=== PATIENT | male | born 1955 | race Caucasian/White ===

== ENCOUNTER → 2017-01-27 | Outpatient (REF) | payer OTHER ==
[~2017-01-27] MED LIST: ASPI1TAB PO; ATOR40TA PO; CARV6.25 PO; IBUP200T45 PO; METF500T PO; MULTTAB PO; VITA400C29 PO
== END ==
LOC: M SFHCPLAZ 16:00
PROVIDERS: ATTEND Dermatology
DX: C44.601 Unspecified malignant neoplasm of skin of unspecified upper limb, including shoulder (principal)

== ENCOUNTER → 2017-04-05 | Outpatient (CLI) | payer OTHER ==
[~2017-04-05] MED LIST changes: -ATOR40TA PO; +ATOR40TA75 PO; -METF500T PO; +METF500T13 PO; +VITA-110 PO; -VITA400C29 PO
--- NOTE | 2017-04-05 09:39 | REP ---
Left wrist four views: I suspect there is soft tissue edema over the dorsum. There is no fracture or dislocation. Mineralization joint spaces are normal. No calcifications or foreign bodies. Signed by Buck Lopez MD 04/05/2017 09:31 A
== END ==
LOC: M WUC 08:51
PROVIDERS: ATTEND Physician Assistant
DX: S60.212A Contusion of left wrist, initial encounter (principal); W18.30XA Fall on same level, unspecified, initial encounter; Y92.009 Unspecified place in unspecified non-institutional (private) residence as the place of occurrence of the external cause

== ENCOUNTER → 2017-05-03 | Outpatient (CLI) | payer OTHER ==
--- NOTE | 2017-05-03 11:04 | REP ---
Clinical: Chest wall pain . Comparison: None . Technique: PA and lateral. Findings: The mediastinum and cardiac silhouette are normal. The lung [place]ada are clear and without acute consolidation, effusion, or pneumothorax. The skeletal structures are intact and normal. Impression: 1. No acute cardiopulmonary process. Signed by Krishna Guerra MD 05/03/2017 10:55 A
== END ==
LOC: M WUC 10:37
PROVIDERS: ATTEND Physician Assistant
DX: S29.011A Strain of muscle and tendon of front wall of thorax, initial encounter (principal); W18.30XA Fall on same level, unspecified, initial encounter; Y92.009 Unspecified place in unspecified non-institutional (private) residence as the place of occurrence of the external cause

== ENCOUNTER → 2017-12-30 | Outpatient (REF) ==
[2017-12-30 10:53] LABS: RUBELLA IgG QUALITATIVE IMMUNE (IMMUNE)
== END ==
LOC: M LAB 09:04
DX: Z00.00 Encounter for general adult medical examination without abnormal findings (principal)

== ENCOUNTER 2018-02-19 19:39 | Emergency (ER) | payer OTHER ==
[2018-02-19] MEDS: DERMABOND TOPICAL SKIN ADHESIVE TOP (19:00)
[2018-02-19] MEDS: ADACEL/BOOSTRIX VACCINE (DIPHTH/PERTUSS/ACELL/TETANUS)0.5ML SYR (90715) IM (19:10)
== END 2018-02-19 19:43 | disposition home or self-care (01) ==
LOC: M ED 19:39
DX: S61.211A Laceration without foreign body of left index finger without damage to nail, initial encounter (principal); S61.213A Laceration without foreign body of left middle finger without damage to nail, initial encounter; W26.8XXA Contact with other sharp object(s), not elsewhere classified, initial encounter; Y92.099 Unspecified place in other non-institutional residence as the place of occurrence of the external cause; Y93.9 Activity, unspecified; Y99.9 Unspecified external cause status; E11.9 Type 2 diabetes mellitus without complications; I10 Essential (primary) hypertension; Z79.82 Long term (current) use of aspirin; Z79.84 Long term (current) use of oral hypoglycemic drugs; Z79.899 Other long term (current) drug therapy; Z91.89 Other specified personal risk factors, not elsewhere classified
CPT/HCPCS: 90715

== ENCOUNTER 2020-06-03 16:14 | Emergency (ER) | payer MEDICARE, BC, OTHER ==
[~2020-06-03] VITALS: Ht 190.5 cm; Wt 107.6 kg
[~2020-06-03 16:14] MED LIST changes: +A REDS PO; -ASPI1TAB PO; +ASPI81TA26 PO; +KEFL500C17 PO
[2020-06-03] MEDS ORDERED: AMIO200T3 PO (16:27)
[2020-06-03] MEDS ORDERED: OCUVTAB4 PO (16:27)
[2020-06-03 17:15] LABS: BASO # 0.1 10^3/uL (0.0-0.2); BASO % 0.6 % (0.0-1.0); EOS # 0.2 10^3/uL (0.0-0.5); EOS % 2.9 % (0.0-3.0); HEMATOCRIT 43.1 % (42.0-52.0); HEMOGLOBIN 14.2 g/dl (13.5-17.5); LYMPH # 3.1 10^3/uL (1.5-5.0); MEAN CORPUSCULAR HEMOGLOBIN 28.3 pg (27.0-33.0); MEAN CORPUSCULAR HGB CONC 32.9 g/dl (32.0-36.5); MEAN CORPUSCULAR VOLUME 85.9 fl (80.0-96.0); MONO # 0.7 10^3/uL (0.0-0.8); MONO % 8.7 % (0.0-5.0); NEUTROPHILS % 49.6 % (36.0-66.0); PLATELET COUNT, AUTOMATED 319 10^3/uL (150-450); RED BLOOD COUNT 5.02 10^6/uL (4.30-6.10)
--- NOTE | 2020-06-03 17:43 | REPVR ---
PROCEDURE INFORMATION: Exam: XR Chest, 1 View Exam date and time: 06/03/2020 5:08 PM Age: 64 years old Clinical indication: Right-sided chest pain TECHNIQUE: Imaging protocol: XR of the chest Views: 1 view. COMPARISON: CR CHEST 2 VIEW 05/03/2017 10:45 AM FINDINGS: Lungs: The lungs are clear. No pulmonary consolidation. The pulmonary vasculature is within normal limits. Pleural space: No pleural effusion or pneumothorax. Heart/Mediastinum: The heart is normal in size given this AP portable technique. Bones/joints: No acute bone or joint abnormality. IMPRESSION: No acute abnormality. Electronically signed by: Claudy Tinsley On 06/03/2020 17:42:51 PM
[2020-06-03 17:45] VITALS: BP 173/90
[2020-06-03 17:46] LABS: BLOOD UREA NITROGEN 20 MG/DL (7-18); CALCIUM LEVEL 8.9 MG/DL (8.8-10.2); CARBON DIOXIDE LEVEL 29 MEQ/L (21-32); CHLORIDE LEVEL 104 MEQ/L (98-107); CK-MB VALUE MASS 1.4 NG/ML (<3.6); CPK CREATINE PHOSPHOKINASE 136 U/L (39-308); CREATININE FOR GFR 0.94 MG/DL (0.70-1.30); GLOMERULAR FILTRATION RATE > 60.0 (>49); GLUCOSE, FASTING 98 MG/DL (70-100); MB/CK RELATIVE INDEX 1.03 (< OR =4); POTASSIUM SERUM 3.8 MEQ/L (3.5-5.1); SODIUM LEVEL 140 MEQ/L (136-145); TROPONIN I < 0.02 NG/ML (< 0.10)
--- NOTE | 2020-06-04 07:02 | ECGEPIP ---
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
== END 2020-06-03 18:14 | disposition home or self-care (01) ==
LOC: M ED 16:14
DX: M25.511 Pain in right shoulder (principal); I11.9 Hypertensive heart disease without heart failure; E11.9 Type 2 diabetes mellitus without complications; E78.5 Hyperlipidemia, unspecified; Z79.899 Other long term (current) drug therapy

== ENCOUNTER 2020-06-17 14:53 | Inpatient (IN) | payer MEDICARE, BC, OTHER ==
[~2020-06-17] VITALS: Ht 190.5 cm; Wt 104.0 kg
[~2020-06-17 14:53] MED LIST changes: +AMIO200T3 PO; +OCUVTAB4 PO
[2020-06-17 15:40] LABS: BASO # 0.1 10^3/uL (0.0-0.2); BASO % 0.3 % (0.0-1.0); EOS # 0.4 10^3/uL (0.0-0.5); EOS % 2.4 % (0.0-3.0); HEMATOCRIT 41.7 % (42.0-52.0); HEMOGLOBIN 13.7 g/dl (13.5-17.5); LYMPH # 2.3 10^3/uL (1.5-5.0); LYMPH % 15.1 % (24.0-44.0); MEAN CORPUSCULAR HEMOGLOBIN 28.1 pg (27.0-33.0); MEAN CORPUSCULAR HGB CONC 32.9 g/dl (32.0-36.5); MEAN CORPUSCULAR VOLUME 85.6 fl (80.0-96.0); MONO # 1.5 10^3/uL (0.0-0.8); MONO % 10.1 % (0.0-5.0); NEUTROPHILS # 10.9 10^3/uL (1.5-8.5); NEUTROPHILS % 71.4 % (36.0-66.0); PLATELET COUNT, AUTOMATED 379 10^3/uL (150-450); RED BLOOD COUNT 4.87 10^6/uL (4.30-6.10); WHITE BLOOD COUNT 15.3 10^3/uL (4.0-10.0)
[2020-06-17] MEDS ORDERED: methylPREDNISolone 125MG 2ML VIAL IV ONE (15:45)
[2020-06-17] MEDS ORDERED: diphenhydrAMINE 50MG/ML VIAL (J1200) IV ONE (15:45)
[2020-06-17 15:59] LABS: INR 0.96; PARTIAL THROMBOPLASTIN TIME 29.1 SECONDS (24.2-38.5)
[2020-06-17 16:09] LABS: ALBUMIN 3.5 GM/DL (3.2-5.2); ALT/SGPT 40 U/L (12-78); BILIRUBIN,DIRECT 0.2 MG/DL (0.0-0.2); BILIRUBIN,TOTAL 0.5 MG/DL (0.2-1.0); CK-MB VALUE MASS < 1.0 NG/ML (<3.6); CPK CREATINE PHOSPHOKINASE 71 U/L (39-308); LIPASE 95 U/L (73-393); MB/CK RELATIVE INDEX 1.41 (< OR =4); TOTAL PROTEIN 7.5 GM/DL (6.4-8.2); TROPONIN I < 0.02 NG/ML (< 0.10)
[2020-06-17] MEDS ORDERED: ISOVUE-370 76% 100ML VIAL As Ordered ONE (16:38)
--- NOTE | 2020-06-17 17:11 | REP ---
INDICATION: r shoulder/chest pain COMPARISON: None. TECHNIQUE: Axial contrast enhanced images from the thoracic inlet to the upper abdomen using pulmonary embolus technique with multiplanar re-formations. 75 ml Isovue 370 intravenous contrast material administered without complication. This CT examination was performed using the following dose reduction techniques: Automated exposure control, adjustment of mA and/or kv according to the patient's size, and use of iterative reconstruction technique. FINDINGS: Satisfactory enhancement of the pulmonary vasculature is achieved and no filling defects are identified to suggest pulmonary embolus. Further evaluation of the mediastinum demonstrates relatively normal thoracic aorta, heart and pericardium. There is no evidence for thoracic aortic aneurysm or dissection. No cardiomegaly or pericardial effusion. The bilateral lung canada are well aerated and clear without consolidation pleural effusion or pneumothorax. Very minimal posterior basilar dependent changes suggested at the right base. Tracheobronchial tree is patent. No nodule or mass lesion is identified. No adenopathy noted. Surrounding musculoskeletal structures intact IMPRESSION: No evidence for pulmonary embolus. No acute mediastinal or pleural parenchymal process. <Electronically signed by Krishna Guerra > 06/17/20 [id number]
--- NOTE | 2020-06-17 17:19 | REP ---
INDICATION: rlq pain. COMPARISON: None TECHNIQUE: Axial contrast-enhanced images from the lung bases to the pubic symphysis using 100 cc Isovue 370 intravenous contrast material. Coronal and sagittal reformations obtained.. This CT examination was performed using the following dose reduction techniques: Automated exposure control, adjustment of mA and/or kv according to the patient's size, and the use of iterative reconstruction technique. FINDINGS: There is a complex 4.5 cm somewhat multiloculated fluid collection in the right lower quadrant extending from the base of the appendix with surrounding inflammatory changes and a relatively normal appearance to the cecum and terminal ileum (images [id number]). Findings suggest a focal abscess collection related to appendicitis. No free air is appreciated. The collection does not appear amenable to drainage due to its significant complex appearance. Liver, spleen, pancreas, gallbladder, and bilateral adrenal glands are normal. The kidneys demonstrate symmetric likely chronic perinephric stranding along with few scattered hypodensities compatible with cysts and 2 mm nonobstructing left renal calculi. Further evaluation of the small and large bowel is unremarkable. Few scattered sigmoid diverticular noted. Pelvis demonstrates collapsed bladder and mildly prominent prostate gland. No significant ascites. No free air. No adenopathy. Abdominal aorta and vasculature appear normal. Musculoskeletal structures demonstrate age-related changes without acute osseous abnormality. IMPRESSION: *Findings described above consistent with appendicitis and loculated periappendiceal abscess/phlegmon collection. *Further nonacute findings as described above. <Electronically signed by Krishna Guerra > 06/17/20 [id number]
[2020-06-17] MEDS ORDERED: AMPICILLIN SOD/SULBACTAM SOD 3 GM in D5W MINI-BAG PLUS 100 ML IV ONE (18:00)
[2020-06-17] MEDS ORDERED: GLUCAGON INJ 1MG VIAL SC PRN (18:45)
[2020-06-17] MEDS ORDERED: GLUCOSE 4GM CHEW TABLET PO PRN (18:45)
[2020-06-17] MEDS ORDERED: DEXTROSE 50% 50 ML SYRINGE IV PRN (18:45)
[2020-06-17] MEDS ORDERED: D31000TA2 PO (18:48)
[2020-06-17] MEDS ORDERED: ATOR1TAB21 PO (18:50)
[2020-06-17] MEDS ORDERED: CARV12.5 PO (18:50)
[2020-06-17] MEDS ORDERED: IRBE150T14 PO (18:53)
[2020-06-17] MEDS ORDERED: ACET1TAB55 PO (18:53)
[2020-06-17] MEDS ORDERED: CIPR500T3 PO (18:53)
--- NOTE | 2020-06-17 18:58 | HPEPDOC ---
General Date of Admission 06/17/20 Date of Service: Jun 17, 2020 Chief Complaint The patient is a 64-year-old male admitted with a reason for visit of Pain Right Side. Source: Patient History of Present Illness 64 year old man with PMD of DM, HTN, HLD presented to the ED with complaints fo right lower quadrant and flank pain and right shoulder blade pain. Patient first starting feeling sharp right shoulder blade pain 2 weeks ago for which he had come to the ED and worked up for chest complaints but did not have a CT abdomen and pelvis. He then started having right Upper quadrant pain and epigastric which he thought was because he was taking ibuprofen and tylenol for his shoulder blade pain. The pain then moved to the RLQ and right flank associated with night sweats for the past 5 days. He went to see his PMD for this RLQ pain and was started on ciprofloxacin 2 days ago and was ordered a CT abdomen for tomorrow but the pain really became very bad overnight and he could not sleep because of the pain . It is sharp aching about 8/10 in intensity int he RLQ without any radiation. He has been having some altered bowel habits the last 2 weeks having constipation which is very uncommon for him however last 2 days his bowels have been regular. He denied any nausea or vomiting. CT abd and Pelvis showed: There is a complex 4.5 cm somewhat multiloculated fluid collection in the right lower quadrant extending from the base of the appendix with surrounding inflammatory changes and a relatively normal appearance to the cecum and terminal ileum (images [id number]). Findings suggest a focal abscess collection related to appendicitis. No free air is appreciated. The collection does not appear amenable to drainage due to its significant complex appearance. he was ad mitted for Appendicular abscess. Home Medications Scheduled (Multiple Vitamin) 1 Tab Tab, 1 TAB PO DAILY, (Reported) Aspirin (Aspirin EC) 81 Mg Tab, 81 MG PO DAILY, (Reported) Atorvastatin Calcium (Atorvastatin Calcium) 40 Mg Tab, 40 MG PO DAILY, (Reported) Cholecalciferol (Vitamin D) 400 Unit Cap, 400 UNIT PO DAILY, (Reported) Ibuprofen (Ibu-200) 200 Mg Tab, 200 MG PO ASDIRECTED for PAIN, (Reported) Vit A/Vit C/Vit E/Zinc/Copper (Preservision Areds Tablet) 1 Each Tablet, 1 TAB PO BID, (Reported) Miscellaneous Medications Amiodarone HCl (Amiodarone HCl) 200 Mg Tablet, (Reported) Carvedilol (Carvedilol) 6.25 Mg Tab, 6.25 MG PO, (Reported) Metformin HCl (Metformin HCl) 500 Mg Tab, 500 MG PO, (Reported) Allergies Coded Allergies: iodine (Verified Allergy, Intermediate, 06/03/20) Past Medical History Medical History NIDDM, HYPERTENSION, HLD, A fib DEJUAN on CPAP 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 Dyspnea, Lt Headedness Gastrointestinal: Reports: Abdominal Pain; Denies: Nausea, Vomiting, Diarrhea Genitourinary: Denies: Dysuria, Frequency, Incontinence, Retention Hematologic: Denies: Bruising, Bleeding Excessively Musculoskeletal: Reports: Shoulder Pain (right shoulder blade pain) Neurological: Denies: Weakness, Numbness, Change in speech, Confusion Physical Examination General Exam: Positive: Alert, Cooperative, No Acute Distress Eye Exam: Positive: PERRLA, Conjunctiva & lids normal, EOMI; Negative: Sclera icteric ENT Exam: Positive: Atraumatic, Mucous membr. moist/pink, Pharynx Normal Neck Exam: Positive: Supple; Negative: JVD, thyromegaly Chest Exam: Positive: Clear to auscultation, Normal air movement Heart Exam: Positive: Rate Normal, Regular Rhythm, Normal S1, Normal S2; Negative: Murmurs, Rubs Abdomen Exam: Positive: Normal bowel sounds, Soft, Tenderness (Right illiac fossa.), Other (No guarding or rigidity, no rebound); Negative: Hepatospenomegaly Extremity Exam: Positive: Normal pulses; Negative: Clubbing, Cyanosis, Edema Skin Exam: Positive: Nl turgor and temperature; Negative: Breakdown, Lesion Neuro Exam: Positive: Normal Gait, Normal Speech, Strength at 5/5 X4 ext Psych Exam: Positive: Mental status NL, Mood NL, Oriented x 3 Vital Signs Vital Signs Date Time Temp Pulse Resp B/P (MAP) Pulse Ox O2 Delivery O2 Flow Rate FiO2 06/17/20 16:30 06/17/20 14:54 99.6 79 20 97 Room Air Laboratory Data Labs 24H Laboratory Tests 2 06/17/20 15:27: Immature Granulocyte % (Auto) 0.7, Neutrophils (%) (Auto) 71.4H, Lymphocytes (%) (Auto) 15.1L, Monocytes (%) (Auto) 10.1H, Eosinophils (%) (Auto) 2.4, Basophils (%) (Auto) 0.3, Neutrophils # (Auto) 10.9H, Lymphocytes # (Auto) 2.3, Monocytes # (Auto) 1.5H, Eosinophils # (Auto) 0.4, Basophils # (Auto) 0.1, Nucleated Red Blood Cells % (auto) 0.0, Urine Color YELLOW, Urine Appearance CLEAR, Urine pH 6.0, Urine Specific [place] 1.012, Urine Protein NEGATIVE, Urine Glucose (UA) NEGATIVE, Urine Ketones NEGATIVE, Urine Blood 1+H, Urine Nitrite NEGATIVE, Urine Bilirubin NEGATIVE, Urine Urobilinogen 0.2, Urine Leukocyte Esterase NEGATIVE, Urine WBC (Auto) 1, Urine RBC (Auto) 15H, Urine Hyaline Casts (Auto) 0, Urine Bacteria (Auto) NEGATIVE, Urine Squamous Epithelial Cells 0, Urine Mucus (Auto) SMALL, Urine Sperm (Auto) , Total Bilirubin 0.5, Direct Bilirubin 0.2, Aspartate Amino Transf (AST/SGOT) 20, Alanine Aminotransferase (ALT/SGPT) 40, Alkaline Phosphatase 87, Total Creatine Kinase 71, Creatine Kinase MB < 1.0, Creatine Kinase MB Relative Index 1.41, Troponin I < 0.02, Total Protein 7.5, Albumin 3.5, Albumin/Globulin Ratio 0.9, Lipase 95 06/17/20 15:32: POC Glucose (Misc Panel) 124H, POC Sodium (Misc Panel) 138, POC Potassium (Misc Panel) 3.4L, POC Chloride (Misc Panel) 96L, POC Total CO2 (Misc Panel) 27.0, POC Blood Urea Nitrogen (Misc Panel 14, POC Ionized Calcium (Misc Panel) 4.3L, POC Creatinine (Misc Panel) 0.9, POC Hematocrit (Misc Panel) 44.0 06/17/20 15:40: Prothrombin Time 13.0, Prothromb Time International Ratio 0.96, Activated Parti al Thromboplast Time 29.1 CBC/BMP Laboratory Tests 06/17/20 15:27 Assessment/Plan 64 year old man with PMD of DM, HTN, HLD presented to the ED with complaints fo right lower quadrant and flank pain and right shoulder blade pain. Patient first starting feeling sharp right shoulder blade pain 2 weeks ago for which he had come to the ED and worked up for chest complaints but did not have a CT abdomen and pelvis. He then started having right Upper quadrant pain and epigastric which he thought was because he was taking ibuprofen and tylenol for his shoulder blade pain. The pain then moved to the RLQ and right flank associated with night sweats for the past 5 days. He went to see his PMD for this RLQ pain and was started on ciprofloxacin 2 days ago and was ordered a CT abdomen for tomorrow but the pain really became very bad overnight and he could not sleep because of the pain . It is sharp aching about 8/10 in intensity int he RLQ without any radiation. He has been having some altered bowel habits the last 2 weeks having constipation which is very uncommon for him however last 2 days his bowels have been regular. He denied any nausea or vomiting. CT abd and Pelvis showed: There is a complex 4.5 cm somewhat multiloculated fluid collection in the right lower quadrant extending from the base of the appendix with surrounding inflammatory changes and a relatively normal appearance to the cecum and terminal ileum (images [id number]). Findings suggest a focal abscess collection related to appendicitis. No free air is appreciated. The collection does not appear amenable to drainage due to its significant complex appearance. he was admitted for Appendicular abscess. Appendicular abscess will give zosyn, IVF, clear liquids, Morphine IV Surgical consult Dr Jacques IR consult tomorrow for IR drainage. NIDDM will stop metformin Lispro sliding scale FS AC and HS HYPERTENSION will continue Irbesartan anad coreg HLD will hold statin A fib continue amiodarone will hold ASA. Not on AC. DEJUAN continue CPAP Plan / VTE VTE Prophylaxis Ordered?: Yes DIMITRI CARRANZA MD Jun 17, 2020 18:10
[2020-06-17] MEDS ORDERED: KETOROLAC 30 MG/ML 1ML VIAL IV PRN (19:00)
[2020-06-17] MEDS ORDERED: MORPHINE 2 MG/ML 1ML VIAL (J2270) IV PRN (19:00)
[2020-06-17 20:45] VITALS: BP 140/63
[2020-06-17] MEDS: HumaLOG INSULIN (NovoLOG) PER UNIT SC SCH (21:00)
[2020-06-17] MEDS: CARVedilol 12.5 MG TAB PO SCH (22:01)
[2020-06-17] MEDS: NS 1,000 ML IV SCH (22:02)
[2020-06-18] MEDS: PIPERACILLIN/TAZOBACTAM SOD 3.375 GM in D5W MINI-BAG PLUS 50 ML IV SCH ×4 (02:14→20:34)
[2020-06-18] MEDS: NS 1,000 ML IV SCH ×2 (05:45→14:45)
[2020-06-18 06:00] VITALS: BP 115/57
[2020-06-18 06:58] LABS: BASO % 0.1 % (0.0-1.0); EOS % 0.1 % (0.0-3.0); HEMATOCRIT 38.5 % (42.0-52.0); HEMOGLOBIN 12.6 g/dl (13.5-17.5); LYMPH # 1.3 10^3/uL (1.5-5.0); LYMPH % 8.8 % (24.0-44.0); MEAN CORPUSCULAR HEMOGLOBIN 28.1 pg (27.0-33.0); MEAN CORPUSCULAR HGB CONC 32.7 g/dl (32.0-36.5); MEAN CORPUSCULAR VOLUME 85.9 fl (80.0-96.0); MONO # 0.4 10^3/uL (0.0-0.8); MONO % 2.9 % (0.0-5.0); NEUTROPHILS # 13.3 10^3/uL (1.5-8.5); NEUTROPHILS % 87.4 % (36.0-66.0); PLATELET COUNT, AUTOMATED 355 10^3/uL (150-450); RED BLOOD COUNT 4.48 10^6/uL (4.30-6.10); WHITE BLOOD COUNT 15.2 10^3/uL (4.0-10.0)
[2020-06-18 07:17] LABS: BLOOD UREA NITROGEN 19 MG/DL (7-18); CALCIUM LEVEL 8.6 MG/DL (8.8-10.2); CARBON DIOXIDE LEVEL 30 MEQ/L (21-32); CHLORIDE LEVEL 101 MEQ/L (98-107); CREATININE FOR GFR 1.05 MG/DL (0.70-1.30); GLOMERULAR FILTRATION RATE > 60.0 (>49); GLUCOSE, FASTING 244 MG/DL (70-100); POTASSIUM SERUM 3.9 MEQ/L (3.5-5.1); SODIUM LEVEL 136 MEQ/L (136-145)
[2020-06-18] MEDS: HumaLOG INSULIN (NovoLOG) PER UNIT SC SCH ×4 (08:32→21:00)
[2020-06-18 08:52] VITALS: BP 145/82
[2020-06-18] MEDS: IRBESARTAN 150MG TAB PO SCH (10:26)
[2020-06-18] MEDS: CARVedilol 12.5 MG TAB PO SCH ×2 (10:27→20:34)
[2020-06-18] MEDS: AMIODARONE 200 MG TAB (PACERONE) PO SCH (10:28)
--- NOTE | 2020-06-18 11:35 | IPNPDOC ---
Text Note Date of Service The patient was seen on 06/18/20. NOTE Subjective: no new complaint soverngith. His abdomnal pain in the RLQ remains unchanged. Also continues to have right shoulder kings pain. No fever Physical Exam: Vitals: As below General Exam: Positive: Alert, Cooperative, No Acute Distress Eye Exam: Positive: PERRLA, Conjunctiva & lids normal, EOMI; Negative: Sclera icteric ENT Exam: Positive: Atraumatic, Mucous membr. moist/pink, Pharynx Normal Neck Exam: Positive: Supple; Negative: JVD, thyromegaly Chest Exam: Positive: Clear to auscultation, Normal air movement Heart Exam: Positive: Rate Normal, Regular Rhythm, Normal S1, Normal S2; Negative: Murmurs, Rubs Abdomen Exam: Positive: Normal bowel sounds, Soft, Tenderness (Right illiac fossa.), Other (No guarding or rigidity, no rebound); Negative: Hepatosplenomegaly Extremity Exam: Positive: Normal pulses; Negative: Clubbing, Cyanosis, Edema Skin Exam: Positive: Nl turgor and temperature; Negative: Breakdown, Lesion Neuro Exam: Positive: Normal Gait, Normal Speech, Strength at 5/5 X4 ext Psych Exam: Positive: Mental status NL, Mood NL, Oriented x 3 Labs and Radiology: reviewed Assessment and Plan: 64 year old man with PMD of DM, HTN, HLD presented to the ED with complaints fo right lower quadrant and flank pain and right shoulder blade pain. Patient first starting feeling sharp right shoulder blade pain 2 weeks ago for which he had come to the ED and worked up for chest complaints but did not have a CT abdomen and pelvis. He then started having right Upper quadrant pain and epigastric which he thought was because he was taking ibuprofen and tylenol for his shoulder blade pain. The pain then moved to the RLQ and right flank associated with night sweats for the past 5 days. He went to see his PMD for this RLQ pain and was started on ciprofloxacin 2 days ago and was ordered a CT abdomen for tomorrow but the pain really became very bad overnight and he could not sleep because of the pain . It is sharp aching about 8/10 in intensity int he RLQ without any radiation. He has been having some altered bowel habits the last 2 weeks having constipation which is very uncommon for him however last 2 days his bowels have been regular. He denied any nausea or vomiting. CT abd and Pelvis showed: There is a complex 4.5 cm somewhat multiloculated fluid collection in the right lower quadrant extending from the base of the appendix with surrounding inflammatory changes and a relatively normal appearance to the cecum and terminal ileum (images [id number]). Findings suggest a focal abscess collection related to appendicitis. No free air is appreciated. The collection does not appear amenable to drainage due to its significant complex appearance. he was admitted for Appendicular abscess. Appendicular abscess will give zosyn, IVF, clear liquids, Morphine IV Surgical consult Dr Jacques IR consult for IR drainage. NIDDM will stop metformin Lispro sliding scale FS AC and HS HYPERTENSION will continue Irbesartan and coreg HLD will hold statin Paroxysmal A fib Now in sinus rhythm. continue amiodarone will hold ASA for now. Not on AC. DEJUAN continue CPAP VS,Fishbone, I+O VS, Fishbone, I+O Laboratory Tests 06/17/20 15:27 06/18/20 06:38 Vital Signs Date Time Temp Pulse Resp B/P (MAP) Pulse Ox O2 Delivery O2 Flow Rate FiO2 06/18/20 10: 145/82 06/18/20 08:52 97.3 60 16 96 Room Air I&O- Last 24 Hours up to 6 AM 06/18/20 06:00 Intake Total 250 ml Output Total 1000 ml Balance -750 ml DIMITRI CARRANZA MD Jun 18, 2020 11:35
[2020-06-18] MEDS ORDERED: SODIUM BICARBONATE 8.4% INJ 50MEQ 50 ML VIAL As Ordered ONE (13:04)
[2020-06-18] MEDS ORDERED: LIDOCAINE 1% MDV 20ML VIAL As Ordered ONE (13:04)
--- NOTE | 2020-06-18 13:40 | CR ---
DATE OF CONSULT: 06/18/2020 REASON FOR CONSULT: Abdominal pain. HISTORY OF PRESENT ILLNESS: The patient is a 64-year-old male who presented to the Emergency Room with right lower quadrant and flank pain for almost a week and a half now. He was seen in the Emergency Room in the past mainly because his pains were right upper quadrant and going to the right shoulder. Work-up was negative at the time. He now presents with pain more towards the right lower quadrant. At this time CT was done showing inflammation near the tip of the appendix as well as a phlegmon versus loculated abscess extending from the base of the appendix with surrounding inflammatory changes. The main change that brought him back into the Emergency Room was he started having night sweats for the last 5 days. ER called me with these findings secondary to him having a well formed abscess. Recommendation is to proceed with IR drainage as opposed to immediate surgery so he was admitted to the Hospitalist Service overnight. This morning he has had a couple doses of I.V. antibiotics, he already feels tremendously better, his pain is almost non-existent and he did not have any more night sweats last evening. I have already discussed his case with radiology. They will attempt drain placement at some point this afternoon. Once that is completed he will be able to be discharged home and I will follow up with him in the office to discuss drain removal and possible elective surgery in the future. PAST MEDICAL HISTORY: * Diabetes. * Hypertension. * Hyperlipidemia. * Afib. * Sleep apnea. PAST SURGICAL HISTORY: * Right shoulder and arm surgery. * Benign neck cyst removal. * Tonsils and adenoids. SOCIAL HISTORY: Denies drug, alcohol or tobacco abuse. FAMILY HISTORY: Noncontributory. ALLERGIES: IODINE. MEDICATIONS: Please see Med Rec. REVIEW OF SYSTEMS: Pertinent positives as per the HPI. PHYSICAL EXAMINATION: General: Patient is A&O times 3, in no acute distress. Vital signs: Temp 97.3, pulse 60, respirations 16, blood pressure 145/82, pulse ox 96% on room air. HEENT: Pupils equal, round and reactive to light and accommodation. Heart: S1 and S2 regular rate and rhythm. Lungs: Clear to auscultation bilaterally. Abdomen: Soft, slight tenderness to deep palpation in the right lower quadrant only, no guarding or rebound, no rigidity, no ventral hernias. Extremities: No clubbing, cyanosis or edema. LABORATORY DATA: White count 15.2, hemoglobin 12.6, platelets 355. Potassium 3.9, creatinine 1.05. LFTs within normal limits. IMAGING: CT abdomen and pelvis shows signs again of the appendicitis with a complex 4.5 cm somewhat multiloculated fluid collection in the right lower quadrant extending from the base of the appendix with surrounding inflammatory changes, relatively normal appearance to the cecum and the terminal ilium. I discussed these findings in person and reviewed the images with the radiologist as well. ASSESSMENT AND PLAN: Patient is a 64-year-old male with likely ruptured appendicitis most likely happened within the last week to week and a half. At this time he has a well formed abscess. Recommendation at this time is to proceed with IR drainage. Once the drain is in place and he is tolerating oral antibiotics he can be discharged home with plan to remove the drain in about 3-4 days and then we will repeat CT of the abdomen and pelvis in 4-6 weeks. If there is still visible appendix there we will plan for elective resection at that time. ROBBIE
[2020-06-18 14:46] VITALS: BP 155/76
--- NOTE | 2020-06-18 17:21 | REP ---
INDICATION: ABSCESS DRAIN OF APPENDICULAR The patient has a history of COMPARISON: None. TECHNIQUE: The procedure was performed by ROLANDO Vu, under the direct supervision of Dr. Jones The risks and benefits of the procedure were explained to the patient and an informed consent was obtained both verbally and written. Directly prior to the start of the procedure a formal time-out was completed in the procedure room. Under ultrasound guidance the right lower quadrant abscess was localized. The skin was prepped and draped in a sterile fashion. Twenty ML of buffered lidocaine was used as a local anesthetic. Using ultrasound guidance a 10 La[place] pigtail catheter was inserted using trocar technique. FINDINGS: Thirty mL of bloody pus was withdrawn and sent to the laboratory for further analysis. The catheter was sutured to the skin and a drainage bag was attached. The patient tolerated the procedure well and there were no immediate complications. After the appropriate amount of monitored convalescence, the patient was discharged from the department. IMPRESSION: Ultrasound guided pigtail catheter placement. <Electronically signed by Cheli Morales > 06/18/20 1624 <Electronically signed by Buck Jones > 06/18/20 [id number]
[2020-06-18] MEDS: SENOKOT S TAB PO SCH (20:33)
[2020-06-18] MEDS: metroNIDAZOLE (FLAGYL) 500MG TABLET PO SCH (20:33)
[2020-06-18 22:00] VITALS: BP 146/74
[2020-06-18] MEDS ORDERED: RAMELTEON 8 MG TAB (ROZEREM) PO PRN (22:45)
[2020-06-19] MEDS: NS 1,000 ML IV SCH ×2 (01:42→11:31)
[2020-06-19] MEDS: PIPERACILLIN/TAZOBACTAM SOD 3.375 GM in D5W MINI-BAG PLUS 50 ML IV SCH ×2 (01:42→08:14)
[2020-06-19 06:00] VITALS: BP 119/54
[2020-06-19 07:20] LABS: BASO % 0.2 % (0.0-1.0); EOS # 0.1 10^3/uL (0.0-0.5); EOS % 0.7 % (0.0-3.0); HEMATOCRIT 37.3 % (42.0-52.0); HEMOGLOBIN 12.5 g/dl (13.5-17.5); LYMPH # 2.2 10^3/uL (1.5-5.0); LYMPH % 18.5 % (24.0-44.0); MEAN CORPUSCULAR HEMOGLOBIN 28.7 pg (27.0-33.0); MEAN CORPUSCULAR HGB CONC 33.5 g/dl (32.0-36.5); MEAN CORPUSCULAR VOLUME 85.6 fl (80.0-96.0); MONO # 0.9 10^3/uL (0.0-0.8); MONO % 7.5 % (0.0-5.0); NEUTROPHILS # 8.8 10^3/uL (1.5-8.5); NEUTROPHILS % 72.7 % (36.0-66.0); PLATELET COUNT, AUTOMATED 362 10^3/uL (150-450); RED BLOOD COUNT 4.36 10^6/uL (4.30-6.10); WHITE BLOOD COUNT 12.1 10^3/uL (4.0-10.0)
[2020-06-19 07:44] LABS: BLOOD UREA NITROGEN 21 MG/DL (7-18); CALCIUM LEVEL 8.3 MG/DL (8.8-10.2); CARBON DIOXIDE LEVEL 29 MEQ/L (21-32); CHLORIDE LEVEL 104 MEQ/L (98-107); GLOMERULAR FILTRATION RATE > 60.0 (>49); GLUCOSE, FASTING 169 MG/DL (70-100); POTASSIUM SERUM 3.3 MEQ/L (3.5-5.1); SODIUM LEVEL 139 MEQ/L (136-145)
[2020-06-19] MEDS: HumaLOG INSULIN (NovoLOG) PER UNIT SC SCH (08:13)
[2020-06-19] MEDS: metroNIDAZOLE (FLAGYL) 500MG TABLET PO SCH (08:17)
[2020-06-19] MEDS: SENOKOT S TAB PO SCH (08:17)
--- NOTE | 2020-06-19 08:20 | IPNPDOC ---
Text Note Date of Service The patient was seen on 06/19/20. NOTE No acute events overnight. Drain is in place without any problems. Output is purulent. Abd pain and swelling have improved. No night sweats or fevers. VSSAF NAD abd - soft, nt, nd, drain in place RLQ with purulent output labs - below A) 64y/o male with perforated appendix s/p drain placement P) reg diet PO abx d/c home with drain f/u in office on thursday for drain removal Franklin Jacques DO VS,Fishbone, I+O VS, Fishbone, I+O Laboratory Tests 06/19/20 06:44 Vital Signs Date Time Temp Pulse Resp B/P (MAP) Pulse Ox O2 Delivery O2 Flow Rate FiO2 06/19/20 06:00 97.7 58 17 119/54 (75) 97 Room Air I&O- Last 24 Hours up to 6 AM 06/19/20 06:00 Intake Total 3100 ml Output Total 1900 ml Balance 1200 ml PAYTON JACQUES DO Jun 19, 2020 08:20
[2020-06-19 08:41] VITALS: BP 129/69
[2020-06-19] MEDS: AMIODARONE 200 MG TAB (PACERONE) PO SCH (08:41)
[2020-06-19] MEDS: IRBESARTAN 150MG TAB PO SCH (08:41)
[2020-06-19] MEDS: CARVedilol 12.5 MG TAB PO SCH (08:41)
[2020-06-19] MEDS ORDERED: FLAG500T PO (10:44)
[2020-06-19] MEDS ORDERED: CIPR500T3 PO (10:44)
[2020-06-19] MEDS ORDERED: POTASSIUM CHLORIDE 10 MEQ SR TABLET PO ONE (11:00)
--- NOTE | 2020-06-20 12:15 | DS.PDOC ---
Discharge Summary General Date of Admission Jun 17, 2020 at 18:33 Discharge Summary PROCEDURES PERFORMED DURING STAY: Placement of abscess drain by radiology DISCHARGE DIAGNOSES: Appendicular abscess. s/p drainage. Hypokalemia Right shoulder blade pain. 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 HOSPITAL COURSE: 64 year old man with PMD of DM, HTN, HLD presented to the ED with complaints fo right lower quadrant and flank pain and right shoulder blade pain. Patient first starting feeling sharp right shoulder blade pain 2 weeks ago for which he had come to the ED and worked up for chest complaints but did not have a CT abdomen and pelvis. He then started having right Upper quadrant pain and epigastric which he thought was because he was taking ibuprofen and tylenol for his shoulder blade pain. The pain then moved to the RLQ and right flank associated with night sweats for the past 5 days. He went to see his PMD for this RLQ pain and was started on ciprofloxacin 2 days ago and was ordered a CT abdomen for tomorrow but the pain really became very bad overnight and he could not sleep because of the pain . It is sharp aching about 8/10 in intensity int he RLQ without any radiation. He has been having some altered bowel habits the last 2 weeks having constipation which is very uncommon for him however last 2 days his bowels have been regular. He denied any nausea or vomiting. CT abd and Pelvis showed: There is a complex 4.5 cm somewhat multiloculated fluid collection in the right lower quadrant extending from the base of the appendix with surrounding inflammatory changes and a relatively normal appearance to the cecum and terminal ileum (images [id number]). Findings suggest a focal abscess collection related to appendicitis. No free air is appreciated. The collection does not appear amenable to drainage due to its significant complex appearance. He was admitted for Appendicular abscess. He had a Drain placed by radiology on 06/18/20 Appendicular abscess s/p drain placed by radiology to go home with drain in place follow up with Dr Jacques in 3 days Given 2 weeks of ciprofloxacin and Flagyl. NIDDM continue home meds. HYPERTENSION continue irbesartan/HCTZ and coreg. HLD statin Paroxysmal A fib Now in sinus rhythm. continue amiodarone, ASA. Not on AC. DEJUAN continue CPAP Persistent Right shoulder blade pain uncertain if a referred pain from abdomen. He does have h/o right shoulder surgery. If does not resolve after the abdominal issues are resolved then would benefit from orthopedic evaluation for any nerve entrapment at the shoulder. DISCHARGE MEDICATIONS: Please see below. ALLERGIES: Please see below. PHYSICAL EXAMINATION ON DISCHARGE: VITAL SIGNS: Please see below. General Exam: Positive: Alert, Cooperative, No Acute Distress Eye Exam: Positive: PERRLA, Conjunctiva & lids normal, EOMI; Negative: Sclera icteric ENT Exam: Positive: Atraumatic, Mucous membr. moist/pink, Pharynx Normal Neck Exam: Positive: Supple; Negative: JVD, thyromegaly Chest Exam: Positive: Clear to auscultation, Normal air movement Heart Exam: Positive: Rate Normal, Regular Rhythm, Normal S1, Normal S2; Negative: Murmurs, Rubs Abdomen Exam: Positive: Normal bowel sounds, Soft, Tenderness (Right illiac fossa.), Other (No guarding or rigidity, no rebound); Negative: Hepatosplenomegaly Extremity Exam: Positive: Normal pulses; Negative: Clubbing, Cyanosis, Edema Skin Exam: Positive: Nl turgor and temperature; Negative: Breakdown, Lesion Neuro Exam: Positive: Normal Gait, Normal Speech, Strength at 5/5 X4 ext Psych Exam: Positive: Mental status NL, Mood NL, Oriented x 3 LABORATORY DATA: Please see below. ACTIVITY: [As tolerated]. DIET: as tolerated DISPOSITION: 06 Home Health Service. DISCHARGE INSTRUCTIONS: Follow up Dr Jacques on 06/22/20 DISCHARGE CONDITION: [Stable]. TIME SPENT ON DISCHARGE: 35 minutes. Vital Signs/I&Os Vital Signs Date Time Temp Pulse Resp B/P (MAP) Pulse Ox O2 Delivery O2 Flow Rate FiO2 06/19/20 08:41 129/69 06/19/20 08:41 54 06/19/20 06:00 97.7 17 97 Room Air I&O- Last 24 Hours up to 6 AM 06/20/20 06:00 Intake Total 1775 ml Output Total 270 ml Balance 1505 ml Laboratory Data Labs 24H Laboratory Tests 2 06/19/20 12:59: Lab Scanned Report Miscellaneous Lab Microbiology Microbiology 06/18/20 Gram Stain - Final, Resulted 06/18/20 Abscess Culture, Resulted Pending 10/26/20 Anaerobic Culture, Resulted Pending Discharge Medications Scheduled Amiodarone HCl (Amiodarone HCl) 200 Mg Tablet, 100 MG PO DAILY, (Reported) Atorvastatin Calcium (Atorvastatin Calcium) 20 Mg Tablet, 20 MG PO DAILY, (Reported) LUNCH Carvedilol (Carvedilol) 12.5 Mg Tablet, 12.5 MG PO BID, (Reported) Cholecalciferol (Vitamin D3) (Vitamin D3) 1,000 Unit Tablet, 1,000 UNITS PO DAILY, (Reported) LUNCH Ciprofloxacin HCl (Ciprofloxacin HCl) 500 Mg Tablet, 500 MG PO BID Till 07/02/20 Irbesartan/Hydrochlorothiazide (Irbesartan-Hctz 150-12.5 mg Tb) 1 Each Tablet, 1 TAB PO DAILY, (Reported) Metformin HCl (Metformin HCl) 500 Mg Tab, 500 MG PO BID, (Reported) Metronidazole (Flagyl) 500 Mg Tablet, 500 MG PO TID Vit A/Vit C/Vit E/Zinc/Copper (Preservision Areds Tablet) 1 Each Tablet, 1 TAB PO BID, (Reported) Scheduled PRN Acetaminophen (Acetaminophen) 325 Mg Tablet, 650 MG PO Q6H PRN for PAIN, (Repor liat) Ibuprofen (Ibu-200) 200 Mg Tab, 400 MG PO Q6H PRN for PAIN, (Reported) Allergies Coded Allergies: iodine (Verified Allergy, Intermediate, 06/03/20) DIMITRI CARRANZA MD Jun 20, 2020 12:15
== END 2020-06-19 12:00 | disposition home health service (06) | DRG 373 ==
LOC: M ED 14:53 → M ED INP 18:33 → ENRESERV 18:52 → M MS5PR 20:44
PROVIDERS: ADMIT Internal Medicine Nephrology; ATTEND Internal Medicine Nephrology
PROC: 0W9J30Z Drainage of Pelvic Cavity with Drainage Device, Percutaneous Approach (ICD-10-PCS; principal; 2020-06-18 13:00)
DX: K35.33 Acute appendicitis with perforation, localized peritonitis, and gangrene, with abscess (principal); E11.9 Type 2 diabetes mellitus without complications; I10 Essential (primary) hypertension; I48.0 Paroxysmal atrial fibrillation; G47.33 Obstructive sleep apnea (adult) (pediatric); Z79.899 Other long term (current) drug therapy; Z88.8 Allergy status to other drugs, medicaments and biological substances; E78.5 Hyperlipidemia, unspecified

== ENCOUNTER → 2020-07-30 | Outpatient (CLI) | payer MEDICARE, BC, OTHER ==
[~2020-07-30] MED LIST changes: +ACET1TAB55 PO; +ATOR1TAB21 PO; +CARV12.5 PO; +CIPR500T3 PO; +D31000TA2 PO; +FLAG500T PO; +IRBE150T14 PO
--- NOTE | 2020-07-30 08:50 | REP ---
INDICATION: ACUTE APPENDICITIS WITH GEN PERITONITIS. COMPARISON: Abdomen and pelvis CT with IV contrast, without bowel contrast, dated 06/17/2020. TECHNIQUE: Abdomen and pelvis CT without IV or bowel contrast. FINDINGS: On the comparison study there was a peritoneal abscess in the abdominal right lower quadrant. This abscess is no longer identified on the study today. On the study today the appendix and terminal ileum are both identified and unremarkable in appearance. There are no inflammatory changes in the mesentery. There is no ascites or pneumoperitoneum. There is no focal or diffuse bowel wall thickening or bowel distention. There is no abscess. The visualized lung [place] are unremarkable. The unenhanced hepatic parenchyma, gallbladder, pancreas and spleen are unremarkable. Adrenals are unremarkable. There are 2 nonobstructive left renal calculi measuring up to 5 mm in diameter, unchanged. There are no right renal calculi. There is no hydronephrosis. There is a 1.8 cm right renal cyst and a 0.8 cm left renal cyst. These are unchanged. Stable perinephric stranding is again noted, chronic. The unenhanced abdominal aorta is unremarkable except for occasional calcified atheroma. There is no periaortic adenopathy or mass. There is no bowel distention or obstruction. No focal or diffuse wall thickening. Pelvis: Bladder is unremarkable. The prostate is mildly enlarged and contains prostatoliths, this is unchanged. There is no ascites or adenopathy. As previously stated the right lower quadrant abscess identified on the prior study is no longer present. There are occasional diverticula in the proximal sigmoid colon without CT evidence of diverticulitis. IMPRESSION: The previous right lower quadrant abscess has resolved. The appendix is identified and unremarkable. The terminal ileum is identified and unremarkable. There stable nonobstructive left renal calculi as described. There is a right renal cyst and a left renal cyst as described. No renal masses are identified. There is no hydronephrosis. There is bilateral chronic perinephric stranding, not unusual for patient age. There are occasional small proximal sigmoid colon diverticula without CT evidence of diverticulitis. Mild prostatic hypertrophy and prostatoliths, unchanged. <Electronically signed by Buck Lopez > 07/30/20 [id number]
== END ==
LOC: M RAD 07:49
PROVIDERS: ATTEND Surgery
DX: K35.20 Acute appendicitis with generalized peritonitis, without abscess (principal)

== ENCOUNTER → 2020-11-26 | Outpatient (CLI) | payer MEDICARE, BC, OTHER ==
--- NOTE | 2020-11-26 08:16 | REP ---
INDICATION: RLQ ABD PAIN ? APPY, RECURRENCE. COMPARISON: Abdomen/pelvis CT dated 07/30/2020. TECHNIQUE: Multiple sonographic images of the abdominal right lower quadrant. FINDINGS: The appendix is not visualized. There is no pain with transducer pressure. There is no rebound tenderness. There is no mesenteric fat inflammation. No mesenteric nodes are identified. There is no right lower quadrant free fluid. Peristalsing small bowel is identified. The cecum is not visualized. No iliac nodes are identified. IMPRESSION: The appendix could not be identified by ultrasound. There is no ascites. No lymph nodes are identified. Otherwise, essentially negative abdominal right lower quadrant ultrasound. <Electronically signed by Buck Lopez > 11/26/20 [id number]
== END ==
LOC: M RAD 07:42
PROVIDERS: ATTEND Physician Assistant
DX: R10.31 Right lower quadrant pain (principal)

== ENCOUNTER → 2021-01-13 | Outpatient (CLI) | payer MEDICARE, BC, OTHER ==
[2021-01-13 10:32] LABS: HEMOGLOBIN A1c 6.8 %
== END ==
LOC: M LAB 08:18
PROVIDERS: ATTEND Physician Assistant
DX: E11.65 Type 2 diabetes mellitus with hyperglycemia (principal)

== ENCOUNTER → 2021-02-13 | Outpatient (CLI) | payer MEDICARE, BC, OTHER ==
[2021-02-13 07:19] LABS: BASO # 0.1 10^3/uL (0.0-0.2); BASO % 0.7 % (0.0-1.0); EOS # 0.4 10^3/uL (0.0-0.5); EOS % 5.5 % (0.0-3.0); HEMATOCRIT 43.6 % (42.0-52.0); HEMOGLOBIN 14.4 g/dl (13.5-17.5); LYMPH # 2.4 10^3/uL (1.5-5.0); LYMPH % 33.7 % (24.0-44.0); MEAN CORPUSCULAR HEMOGLOBIN 28.9 pg (27.0-33.0); MEAN CORPUSCULAR VOLUME 87.6 fl (80.0-96.0); MONO # 0.7 10^3/uL (0.0-0.8); MONO % 9.2 % (2.0-8.0); NEUTROPHILS # 3.6 10^3/uL (1.5-8.5); NEUTROPHILS % 50.6 % (36.0-66.0); PLATELET COUNT, AUTOMATED 304 10^3/uL (150-450); RED BLOOD COUNT 4.98 10^6/uL (4.30-6.10); WHITE BLOOD COUNT 7.2 10^3/uL (4.0-10.0)
[2021-02-13 07:36] LABS: HEMOGLOBIN A1c 6.9 %
[2021-02-13 07:47] LABS: ALBUMIN 4.1 GM/DL (3.2-5.2); ALT/SGPT 30 U/L (12-78); BILIRUBIN,TOTAL 0.6 MG/DL (0.2-1.0); BLOOD UREA NITROGEN 15 MG/DL (7-18); CALCIUM LEVEL 8.7 MG/DL (8.8-10.2); CARBON DIOXIDE LEVEL 32 MEQ/L (21-32); CHLORIDE LEVEL 103 MEQ/L (98-107); CHOLESTEROL LEVEL 97 MG/DL (<200); CHOLESTEROL RISK RATIO 3.129 (<5); CREATININE FOR GFR 1.01 MG/DL (0.70-1.30); FREE T4 0.85 NG/DL (0.76-1.46); GLOMERULAR FILTRATION RATE > 60.0 (>49); GLUCOSE, FASTING 149 MG/DL (70-100); HDL CHOLESTEROL 31 MG/DL (>40); LDL CHOLESTEROL 46 MG/DL (<100); NON-HDL-C 66 MG/DL; POTASSIUM SERUM 3.9 MEQ/L (3.5-5.1); SODIUM LEVEL 140 MEQ/L (136-145); TRIGLYCERIDES LEVEL 102 MG/DL (<150)
== END ==
LOC: M LAB 06:29
PROVIDERS: ATTEND Physician Assistant
DX: E11.65 Type 2 diabetes mellitus with hyperglycemia (principal)

== ENCOUNTER → 2021-03-23 | Outpatient (CLI) | payer MEDICARE, BC, OTHER ==
[2021-03-23 08:56] LABS: BASO # 0.1 10^3/uL (0.0-0.2); BASO % 0.8 % (0.0-1.0); EOS # 0.4 10^3/uL (0.0-0.5); EOS % 4.5 % (0.0-3.0); HEMATOCRIT 43.3 % (42.0-52.0); HEMOGLOBIN 14.7 g/dl (13.5-17.5); LYMPH # 2.4 10^3/uL (1.5-5.0); LYMPH % 30.5 % (24.0-44.0); MEAN CORPUSCULAR HEMOGLOBIN 29.4 pg (27.0-33.0); MEAN CORPUSCULAR HGB CONC 33.9 g/dl (32.0-36.5); MEAN CORPUSCULAR VOLUME 86.6 fl (80.0-96.0); MONO # 0.7 10^3/uL (0.0-0.8); MONO % 8.7 % (2.0-8.0); NEUTROPHILS # 4.3 10^3/uL (1.5-8.5); NEUTROPHILS % 55.1 % (36.0-66.0); PLATELET COUNT, AUTOMATED 310 10^3/uL (150-450); WHITE BLOOD COUNT 7.7 10^3/uL (4.0-10.0)
[2021-03-23 09:33] LABS: BLOOD UREA NITROGEN 14 MG/DL (7-18); CALCIUM LEVEL 8.8 MG/DL (8.8-10.2); CARBON DIOXIDE LEVEL 33 MEQ/L (21-32); CHLORIDE LEVEL 103 MEQ/L (98-107); CHOLESTEROL LEVEL 94 MG/DL (<200); CHOLESTEROL RISK RATIO 2.937 (<5); CREATININE FOR GFR 0.96 MG/DL (0.70-1.30); GLOMERULAR FILTRATION RATE > 60.0 (>49); GLUCOSE, FASTING 154 MG/DL (70-100); HDL CHOLESTEROL 32 MG/DL (>40); LDL CHOLESTEROL 44 MG/DL (<100); NON-HDL-C 62 MG/DL; POTASSIUM SERUM 4.1 MEQ/L (3.5-5.1); SODIUM LEVEL 141 MEQ/L (136-145); TRIGLYCERIDES LEVEL 92 MG/DL (<150)
== END ==
LOC: M LAB 08:39
PROVIDERS: ATTEND Internal Medicine Interventional Cardiology
DX: E78.00 Pure hypercholesterolemia, unspecified (principal); I47.2 Ventricular tachycardia; R07.9 Chest pain, unspecified

== ENCOUNTER → 2021-04-02 | Outpatient (CLI) | payer MEDICARE, BC, OTHER | LOC: M LAB 08:15 | PROVIDERS: ATTEND Urology | DX: R97.20 Elevated prostate specific antigen [PSA] (principal) ==

== ENCOUNTER → 2021-04-23 | Outpatient (CLI) | payer MEDICARE, BC, OTHER ==
[~2021-04-23] MED LIST changes: -AMIO200T3 PO; +AMIO200T49 PO; -IBUP200T45 PO; +IBUP200T46 PO
[2021-04-23 11:31] LABS: BLOOD UREA NITROGEN 13 MG/DL (7-18); CALCIUM LEVEL 9.3 MG/DL (8.8-10.2); CARBON DIOXIDE LEVEL 33 MEQ/L (21-32); CHLORIDE LEVEL 104 MEQ/L (98-107); CREATININE FOR GFR 0.97 MG/DL (0.70-1.30); GLOMERULAR FILTRATION RATE > 60.0 (>49); GLUCOSE, FASTING 182 MG/DL (70-100); POTASSIUM SERUM 4.2 MEQ/L (3.5-5.1); SODIUM LEVEL 139 MEQ/L (136-145)
== END ==
LOC: M LAB 10:28
PROVIDERS: ATTEND Urology
DX: R31.9 Hematuria, unspecified (principal)

== ENCOUNTER → 2021-05-17 | Outpatient (CLI) | payer MEDICARE, BC, OTHER ==
[~2021-05-17] MED LIST changes: +AMIO200T3 PO; -AMIO200T49 PO; +IBUP200T45 PO; -IBUP200T46 PO
[2021-05-17 07:17] LABS: HEMOGLOBIN A1c 6.8 %
[2021-05-17 07:20] LABS: BLOOD UREA NITROGEN 17 MG/DL (7-18); CALCIUM LEVEL 8.8 MG/DL (8.8-10.2); CARBON DIOXIDE LEVEL 32 MEQ/L (21-32); CHLORIDE LEVEL 104 MEQ/L (98-107); CREATININE FOR GFR 0.99 MG/DL (0.70-1.30); GLOMERULAR FILTRATION RATE > 60.0 (>49); GLUCOSE, FASTING 145 MG/DL (70-100); POTASSIUM SERUM 4.1 MEQ/L (3.5-5.1); SODIUM LEVEL 140 MEQ/L (136-145)
== END ==
LOC: M LAB 06:35
PROVIDERS: ATTEND Physician Assistant
DX: E11.65 Type 2 diabetes mellitus with hyperglycemia (principal)

== ENCOUNTER → 2021-05-24 | Outpatient (CLI) | payer MEDICARE, BC, OTHER ==
[2021-05-24 15:58] LABS: HEPATITIS B SURFACE ANTIBODY NEGATIVE (POSITIVE)
== END ==
LOC: M LAB 14:35
PROVIDERS: ATTEND Family Medicine
DX: Z01.84 Encounter for antibody response examination (principal)

== ENCOUNTER → 2021-06-07 | Outpatient (CLI) | payer MEDICARE, BC, OTHER ==
[2021-06-07 14:21] LABS: ALBUMIN 4.1 GM/DL (3.2-5.2); BILIRUBIN,DIRECT 0.1 MG/DL (0.0-0.2); BILIRUBIN,TOTAL 0.4 MG/DL (0.2-1.0); TOTAL PROTEIN 7.1 GM/DL (6.4-8.2)
== END ==
LOC: M LAB 12:12
PROVIDERS: ATTEND Internal Medicine Interventional Cardiology
DX: E78.00 Pure hypercholesterolemia, unspecified (principal); R94.5 Abnormal results of liver function studies

== ENCOUNTER → 2021-06-11 | Outpatient (CLI) | payer MEDICARE, BC, OTHER ==
[~2021-06-11] MED LIST changes: -IBUP200T45 PO; +IBUP200T46 PO
[2021-06-12 23:07] LABS: MUMPS VIRUS IgG ANTIBODY 38.2 AU/mL (Immune >10.9); MUMPS VIRUS IgM ANTIBODY <0.80 AU (0.00-0.79)
== END ==
LOC: M LAB 12:01
PROVIDERS: ATTEND Family Medicine
DX: Z01.84 Encounter for antibody response examination (principal)

== ENCOUNTER → 2021-10-07 | Outpatient (CLI) | payer MEDICARE, BC, OTHER ==
[~2021-10-07] MED LIST changes: -AMIO200T3 PO; +AMIO200T49 PO
== END ==
LOC: M LAB 07:10
PROVIDERS: ATTEND Urology
DX: R97.20 Elevated prostate specific antigen [PSA] (principal)

== ENCOUNTER → 2022-01-04 | Outpatient (CLI) | payer MEDICARE, BC, OTHER ==
[~2022-01-04] MED LIST changes: -D31000TA2 PO; +VITA100093 PO
[2022-01-04 09:31] LABS: BASO % 0.6 % (0.0-1.0); EOS # 0.3 10^3/uL (0.0-0.5); EOS % 4.1 % (0.0-3.0); HEMATOCRIT 40.7 % (42.0-52.0); HEMOGLOBIN 13.5 g/dl (13.5-17.5); LYMPH % 30.5 % (24.0-44.0); MEAN CORPUSCULAR HEMOGLOBIN 28.8 pg (27.0-33.0); MEAN CORPUSCULAR HGB CONC 33.2 g/dl (32.0-36.5); MONO # 0.6 10^3/uL (0.0-0.8); MONO % 8.3 % (2.0-8.0); NEUTROPHILS # 3.7 10^3/uL (1.5-8.5); NEUTROPHILS % 56.3 % (36.0-66.0); PLATELET COUNT, AUTOMATED 279 10^3/uL (150-450); RED BLOOD COUNT 4.68 10^6/uL (4.30-6.10); WHITE BLOOD COUNT 6.6 10^3/uL (4.0-10.0)
[2022-01-04 09:56] LABS: ALBUMIN 4.1 GM/DL (3.2-5.2); ALT/SGPT 27 U/L (12-78); BILIRUBIN,TOTAL 0.8 MG/DL (0.2-1.0); BLOOD UREA NITROGEN 22 MG/DL (7-18); CALCIUM LEVEL 8.9 MG/DL (8.8-10.2); CARBON DIOXIDE LEVEL 34 MEQ/L (21-32); CHLORIDE LEVEL 103 MEQ/L (98-107); CHOLESTEROL LEVEL 98 MG/DL (<200); CHOLESTEROL RISK RATIO 3.161 (<5); CREATININE FOR GFR 1.05 MG/DL (0.70-1.30); GLOMERULAR FILTRATION RATE > 60.0 (>49); GLUCOSE, FASTING 160 MG/DL (70-100); HDL CHOLESTEROL 31 MG/DL (>40); LDL CHOLESTEROL 48 MG/DL (<100); NON-HDL-C 67 MG/DL; SODIUM LEVEL 138 MEQ/L (136-145); TOTAL PROTEIN 6.8 GM/DL (6.4-8.2); TRIGLYCERIDES LEVEL 95 MG/DL (<150)
[2022-01-04 10:01] LABS: HEMOGLOBIN A1c 6.9 %
== END ==
LOC: M LAB 08:09
PROVIDERS: ATTEND Nurse Practitioner Adult Health
DX: E11.9 Type 2 diabetes mellitus without complications (principal)

== ENCOUNTER → 2022-01-21 | Outpatient (REF) | payer MEDICARE, BC, OTHER ==
[2022-01-21 17:32] LABS: APPEARANCE, URINE CLEAR (CLEAR); BACTERIA, URINE AUTO NEGATIVE (NEGATIVE); BILIRUBIN, URINE AUTO NEGATIVE (NEGATIVE); BLOOD, URINE BLOOD NEGATIVE (NEGATIVE); COLOR, URINE YELLOW (YELLOW); GLUCOSE, URINE (UA) AUTO NEGATIVE (NEGATIVE); KETONE, URINE AUTO NEGATIVE (NEGATIVE); LEUKOCYTE ESTERASE, URINE AUTO TRACE (NEGATIVE); NITRITE, URINE AUTO NEGATIVE (NEGATIVE); PROTEIN, URINE AUTO NEGATIVE (NEGATIVE); RBC, URINE AUTO 1 /HPF (0-3); SPECIFIC GRAVITY URINE AUTO 1.013 (1.002-1.035); SQUAMOUS EPITHELIAL CELL UR AU 0 /HPF (0-6); UROBILINOGEN, URINE AUTO 0.2 mg/dL (0.0-2.0); WBC, URINE AUTO 2 /HPF (0-3)
== END ==
LOC: M LAB REF 16:56
PROVIDERS: ATTEND Nurse Practitioner Adult Health
DX: R30.0 Dysuria (principal)

== ENCOUNTER → 2022-04-12 | Outpatient (CLI) | payer MEDICARE, BC, OTHER ==
[2022-04-12 09:09] LABS: BASO % 0.6 % (0.0-1.0); EOS # 0.4 10^3/uL (0.0-0.5); EOS % 5.4 % (0.0-3.0); HEMATOCRIT 44.2 % (42.0-52.0); HEMOGLOBIN 14.4 g/dl (13.5-17.5); LYMPH # 2.2 10^3/uL (1.5-5.0); LYMPH % 31.1 % (24.0-44.0); MEAN CORPUSCULAR HEMOGLOBIN 28.8 pg (27.0-33.0); MEAN CORPUSCULAR HGB CONC 32.6 g/dl (32.0-36.5); MEAN CORPUSCULAR VOLUME 88.4 fl (80.0-96.0); MONO # 0.6 10^3/uL (0.0-0.8); MONO % 8.1 % (2.0-8.0); NEUTROPHILS # 3.9 10^3/uL (1.5-8.5); NEUTROPHILS % 54.5 % (36.0-66.0); PLATELET COUNT, AUTOMATED 257 10^3/uL (150-450); WHITE BLOOD COUNT 7.2 10^3/uL (4.0-10.0)
[2022-04-12 09:55] LABS: ALBUMIN 3.9 GM/DL (3.2-5.2); ALT/SGPT 27 U/L (12-78); BILIRUBIN,DIRECT 0.3 MG/DL (0.0-0.2); BILIRUBIN,TOTAL 0.9 MG/DL (0.2-1.0); BLOOD UREA NITROGEN 24 MG/DL (7-18); CALCIUM LEVEL 8.8 MG/DL (8.8-10.2); CARBON DIOXIDE LEVEL 29 MEQ/L (21-32); CHLORIDE LEVEL 103 MEQ/L (98-107); CHOLESTEROL LEVEL 98 MG/DL (<200); CHOLESTEROL RISK RATIO 3.062 (<5); CREATININE FOR GFR 1.03 MG/DL (0.70-1.30); FREE T4 0.96 NG/DL (0.76-1.46); GLOMERULAR FILTRATION RATE > 60.0 (>49); GLUCOSE, FASTING 150 MG/DL (70-100); HDL CHOLESTEROL 32 MG/DL (>40); LDL CHOLESTEROL 44 MG/DL (<100); NON-HDL-C 66 MG/DL; POTASSIUM SERUM 4.3 MEQ/L (3.5-5.1); SODIUM LEVEL 136 MEQ/L (136-145); TOTAL PROTEIN 6.6 GM/DL (6.4-8.2); TRIGLYCERIDES LEVEL 111 MG/DL (<150)
== END ==
LOC: M LAB 08:23
PROVIDERS: ATTEND Internal Medicine Interventional Cardiology
DX: I47.2 Ventricular tachycardia (principal); I10 Essential (primary) hypertension; E78.00 Pure hypercholesterolemia, unspecified

== ENCOUNTER → 2022-04-27 | Outpatient (REF) | payer MEDICARE, BC, OTHER | LOC: M LAB REF 08:11 | PROVIDERS: ATTEND Physician Assistant Medical | DX: N40.0 Benign prostatic hyperplasia without lower urinary tract symptoms (principal) ==

== ENCOUNTER → 2022-05-20 | Outpatient (CLI) | payer MEDICARE, BC, OTHER ==
[2022-05-20 07:04] LABS: BASO # 0.1 10^3/uL (0.0-0.2); BASO % 0.6 % (0.0-1.0); EOS # 0.3 10^3/uL (0.0-0.5); EOS % 3.8 % (0.0-3.0); HEMATOCRIT 44.4 % (42.0-52.0); HEMOGLOBIN 14.6 g/dl (13.5-17.5); LYMPH # 2.2 10^3/uL (1.5-5.0); MEAN CORPUSCULAR HGB CONC 32.9 g/dl (32.0-36.5); MEAN CORPUSCULAR VOLUME 88.1 fl (80.0-96.0); MONO # 0.8 10^3/uL (0.0-0.8); NEUTROPHILS # 4.7 10^3/uL (1.5-8.5); NEUTROPHILS % 58.1 % (36.0-66.0); PLATELET COUNT, AUTOMATED 307 10^3/uL (150-450); RED BLOOD COUNT 5.04 10^6/uL (4.30-6.10)
[2022-05-20 07:38] LABS: HEMOGLOBIN A1c 6.9 %
[2022-05-20 07:44] LABS: MALB URINE SIEMENS 26.4 MG/L; MAU/CREAT RATIO 14.5 MCG/MG (0.0-30.0)
[2022-05-20 07:48] LABS: ALT/SGPT 23 U/L (12-78); BILIRUBIN,TOTAL 0.7 MG/DL (0.2-1.0); BLOOD UREA NITROGEN 22 MG/DL (7-18); CALCIUM LEVEL 8.7 MG/DL (8.8-10.2); CARBON DIOXIDE LEVEL 31 MEQ/L (21-32); CHLORIDE LEVEL 104 MEQ/L (98-107); CREATININE FOR GFR 1.07 MG/DL (0.70-1.30); FREE T4 1.07 NG/DL (0.76-1.46); GLOMERULAR FILTRATION RATE > 60.0 (>49); GLUCOSE, FASTING 158 MG/DL (70-100); POTASSIUM SERUM 3.8 MEQ/L (3.5-5.1); SODIUM LEVEL 140 MEQ/L (136-145); TOTAL PROTEIN 6.9 GM/DL (6.4-8.2)
[2022-05-20 10:35] LABS: TOTAL 25(OH) VITAMIN D 47.1 NG/ML (30.0-100.0)
== END ==
LOC: M LAB 06:38
PROVIDERS: ATTEND Nurse Practitioner Adult Health
DX: E11.9 Type 2 diabetes mellitus without complications (principal)

== ENCOUNTER → 2022-10-03 | Outpatient (CLI) | payer MEDICARE, BC, OTHER ==
[2022-10-03 07:32] LABS: BASO # 0.1 10^3/uL (0.0-0.2); BASO % 0.9 % (0.0-1.0); EOS # 0.3 10^3/uL (0.0-0.5); EOS % 4.3 % (0.0-3.0); HEMATOCRIT 45.5 % (42.0-52.0); LYMPH # 2.4 10^3/uL (1.5-5.0); LYMPH % 30.9 % (24.0-44.0); MEAN CORPUSCULAR HEMOGLOBIN 28.7 pg (27.0-33.0); MEAN CORPUSCULAR VOLUME 87.2 fl (80.0-96.0); MONO # 0.6 10^3/uL (0.0-0.8); MONO % 8.3 % (2.0-8.0); NEUTROPHILS # 4.2 10^3/uL (1.5-8.5); NEUTROPHILS % 55.3 % (36.0-66.0); PLATELET COUNT, AUTOMATED 302 10^3/uL (150-450); RED BLOOD COUNT 5.22 10^6/uL (4.30-6.10); WHITE BLOOD COUNT 7.7 10^3/uL (4.0-10.0)
[2022-10-03 08:00] LABS: ALBUMIN 4.1 G/DL (3.2-5.2); ALKALINE PHOSPHATASE 69 U/L (46-116); ALT/SGPT 31 U/L (7.0-40); AST/SGOT 21 U/L (<34); BILIRUBIN,TOTAL 0.8 MG/DL (0.3-1.2); BLOOD UREA NITROGEN 18 MG/DL (9-23); CALCIUM LEVEL 8.9 MG/DL (8.3-10.6); CARBON DIOXIDE LEVEL 32 MMOL/L (20-31); CHLORIDE LEVEL 99 MMOL/L (98-107); CREATININE FOR GFR 1.02 MG/DL (0.70-1.30); GLOMERULAR FILTRATION RATE > 60.0 (>49); GLUCOSE, FASTING 172 MG/DL (74-106); POTASSIUM SERUM 4.2 MMOL/L (3.5-5.1); SODIUM LEVEL 137 MMOL/L (136-145); TOTAL PROTEIN 6.7 G/DL (5.7-8.2)
[2022-10-03 09:13] LABS: HEMOGLOBIN A1c 7.6 % (4.0-6.0)
== END ==
LOC: M LAB 06:33
PROVIDERS: ATTEND Nurse Practitioner Adult Health
DX: E11.9 Type 2 diabetes mellitus without complications (principal)

== ENCOUNTER → 2022-11-23 | Outpatient (CLI) | payer MEDICARE, BC, OTHER | LOC: M LAB 08:24 | PROVIDERS: ATTEND Physician Assistant Medical | DX: N40.0 Benign prostatic hyperplasia without lower urinary tract symptoms (principal) ==

== ENCOUNTER → 2023-01-06 | Outpatient (CLI) | payer MEDICARE, BC, OTHER ==
[2023-01-06 07:34] LABS: BASO % 0.5 % (0.0-1.0); EOS # 0.3 10^3/uL (0.0-0.5); EOS % 3.3 % (0.0-3.0); HEMATOCRIT 46.7 % (42.0-52.0); HEMOGLOBIN 15.7 g/dl (13.5-17.5); LYMPH # 2.1 10^3/uL (1.5-5.0); LYMPH % 27.8 % (24.0-44.0); MEAN CORPUSCULAR HEMOGLOBIN 29.4 pg (27.0-33.0); MEAN CORPUSCULAR HGB CONC 33.6 g/dl (32.0-36.5); MEAN CORPUSCULAR VOLUME 87.5 fl (80.0-96.0); MONO # 0.6 10^3/uL (0.0-0.8); MONO % 7.5 % (2.0-8.0); NEUTROPHILS # 4.6 10^3/uL (1.5-8.5); NEUTROPHILS % 60.8 % (36.0-66.0); PLATELET COUNT, AUTOMATED 287 10^3/uL (150-450); RED BLOOD COUNT 5.34 10^6/uL (4.30-6.10); WHITE BLOOD COUNT 7.6 10^3/uL (4.0-10.0)
[2023-01-06 07:49] LABS: HEMOGLOBIN A1c 6.7 % (4.0-6.0)
[2023-01-06 08:01] LABS: ALBUMIN 4.1 G/DL (3.2-5.2); ALKALINE PHOSPHATASE 72 U/L (46-116); ALT/SGPT 20 U/L (7.0-40); AST/SGOT 16 U/L (<34); BILIRUBIN,TOTAL 0.8 MG/DL (0.3-1.2); BLOOD UREA NITROGEN 26 MG/DL (9-23); CALCIUM LEVEL 8.9 MG/DL (8.3-10.6); CARBON DIOXIDE LEVEL 32 MMOL/L (20-31); CHLORIDE LEVEL 104 MMOL/L (98-107); CHOLESTEROL LEVEL 112 MG/DL (<200); CHOLESTEROL RISK RATIO 3.62 (<5); CREATININE FOR GFR 1.05 MG/DL (0.70-1.30); GLOMERULAR FILTRATION RATE > 60.0 (>49); GLUCOSE, FASTING 142 MG/DL (74-106); HDL CHOLESTEROL 30.9 MG/DL (>40); LDL CHOLESTEROL 59.3 MG/DL (<100); NON-HDL-C 81.1 MG/DL; POTASSIUM SERUM 4.2 MMOL/L (3.5-5.1); SODIUM LEVEL 142 MMOL/L (136-145); TOTAL PROTEIN 6.8 G/DL (5.7-8.2); TRIGLYCERIDES LEVEL 109 MG/DL (<150)
[2023-01-06 08:01] LABS: CREATININE, URINE 141.6 MG/DL
[2023-01-06 08:02] LABS: MAU/CREAT RATIO 5.6 MCG/MG (0.0-30.0)
== END ==
LOC: M LAB 06:37
PROVIDERS: ATTEND Family Medicine
DX: E11.65 Type 2 diabetes mellitus with hyperglycemia (principal); E78.5 Hyperlipidemia, unspecified

== ENCOUNTER → 2023-04-19 | Outpatient (CLI) | payer MEDICARE, BC, OTHER ==
[2023-04-19 09:20] LABS: BASO % 0.3 % (0.0-1.0); EOS # 0.2 10^3/uL (0.0-0.5); HEMOGLOBIN 13.7 g/dl (13.5-17.5); LYMPH % 34.2 % (24.0-44.0); MEAN CORPUSCULAR HEMOGLOBIN 29.2 pg (27.0-33.0); MEAN CORPUSCULAR HGB CONC 34.3 g/dl (32.0-36.5); MEAN CORPUSCULAR VOLUME 85.3 fl (80.0-96.0); MONO # 0.6 10^3/uL (0.0-0.8); MONO % 10.8 % (2.0-8.0); NEUTROPHILS # 2.9 10^3/uL (1.5-8.5); NEUTROPHILS % 50.4 % (36.0-66.0); PLATELET COUNT, AUTOMATED 265 10^3/uL (150-450); RED BLOOD COUNT 4.69 10^6/uL (4.30-6.10); WHITE BLOOD COUNT 5.8 10^3/uL (4.0-10.0)
[2023-04-19 09:37] LABS: HEMOGLOBIN A1c 6.9 % (4.0-6.0)
[2023-04-19 09:46] LABS: ALBUMIN 3.6 G/DL (3.2-5.2); ALKALINE PHOSPHATASE 70 U/L (46-116); ALT/SGPT 35 U/L (7.0-40); AST/SGOT 20 U/L (<34); BILIRUBIN,DIRECT 0.3 MG/DL (<0.4); BILIRUBIN,TOTAL 0.9 MG/DL (0.3-1.2); BLOOD UREA NITROGEN 20 MG/DL (9-23); CALCIUM LEVEL 8.9 MG/DL (8.3-10.6); CARBON DIOXIDE LEVEL 27 MMOL/L (20-31); CHLORIDE LEVEL 104 MMOL/L (98-107); CHOLESTEROL LEVEL 85 MG/DL (<200); CHOLESTEROL RISK RATIO 3.32 (<5); CREATININE FOR GFR 0.71 MG/DL (0.70-1.30); GLOMERULAR FILTRATION RATE > 60.0 (>49); GLUCOSE, FASTING 188 MG/DL (74-106); HDL CHOLESTEROL 25.6 MG/DL (>40); LDL CHOLESTEROL 43.8 MG/DL (<100); NON-HDL-C 59.4 MG/DL; POTASSIUM SERUM 4.3 MMOL/L (3.5-5.1); SODIUM LEVEL 140 MMOL/L (136-145); TOTAL PROTEIN 6.2 G/DL (5.7-8.2); TRIGLYCERIDES LEVEL 78 MG/DL (<150)
[2023-04-19 09:49] LABS: FREE T4 2.87 NG/DL (0.89-1.76); THYROID STIMULATING HORMONE 0.008 uIU/ML (0.55-4.78)
== END ==
LOC: M LAB 08:55
PROVIDERS: ATTEND Internal Medicine Interventional Cardiology
DX: R94.39 Abnormal result of other cardiovascular function study (principal); I10 Essential (primary) hypertension; E11.9 Type 2 diabetes mellitus without complications

== ENCOUNTER → 2023-04-19 | Outpatient (REF) | payer MEDICARE, BC, OTHER ==
[2023-04-20 12:54] LABS: THYROID PEROXIDASE ANTIBODY > 1300.0 U/ML (<60.0)
== END ==
LOC: M LAB REF 12:44
PROVIDERS: ATTEND Family Medicine
DX: E05.80 Other thyrotoxicosis without thyrotoxic crisis or storm (principal)

== ENCOUNTER → 2023-04-24 | Outpatient (CLI) | payer MEDICARE, BC, OTHER | LOC: M RAD 14:35 | PROVIDERS: ATTEND Family Medicine | DX: E05.80 Other thyrotoxicosis without thyrotoxic crisis or storm (principal) ==

== ENCOUNTER → 2023-06-22 | Outpatient (CLI) | payer MEDICARE, BC, OTHER ==
[2023-06-22 19:42] LABS: BASO % 0.4 % (0.0-1.0); EOS # 0.3 10^3/uL (0.0-0.5); EOS % 3.7 % (0.0-3.0); HEMATOCRIT 45.4 % (42.0-52.0); HEMOGLOBIN 15.5 g/dl (13.5-17.5); LYMPH % 33.4 % (24.0-44.0); MEAN CORPUSCULAR HEMOGLOBIN 29.1 pg (27.0-33.0); MEAN CORPUSCULAR HGB CONC 34.1 g/dl (32.0-36.5); MEAN CORPUSCULAR VOLUME 85.3 fl (80.0-96.0); MONO # 0.6 10^3/uL (0.0-0.8); MONO % 6.4 % (2.0-8.0); NEUTROPHILS % 55.8 % (36.0-66.0); PLATELET COUNT, AUTOMATED 234 10^3/uL (150-450); RED BLOOD COUNT 5.32 10^6/uL (4.30-6.10)
[2023-06-22 20:13] LABS: ALBUMIN 4.2 G/DL (3.2-5.2); ALKALINE PHOSPHATASE 87 U/L (46-116); ALT/SGPT 19 U/L (7.0-40); AST/SGOT 14 U/L (<34); BILIRUBIN,TOTAL 0.7 MG/DL (0.3-1.2); BLOOD UREA NITROGEN 19 MG/DL (9-23); CALCIUM LEVEL 9.4 MG/DL (8.3-10.6); CARBON DIOXIDE LEVEL 31 MMOL/L (20-31); CHLORIDE LEVEL 100 MMOL/L (98-107); GLOMERULAR FILTRATION RATE > 60.0 (>49); GLUCOSE, FASTING 154 MG/DL (74-106); POTASSIUM SERUM 3.9 MMOL/L (3.5-5.1); SODIUM LEVEL 139 MMOL/L (136-145); TOTAL PROTEIN 6.9 G/DL (5.7-8.2)
[2023-06-22 20:14] LABS: THYROID STIMULATING HORMONE 0.348 uIU/ML (0.55-4.78)
[2023-06-22 20:15] LABS: FREE T3 2.7 PG/ML (2.3-4.2); FREE T4 0.78 NG/DL (0.89-1.76)
== END ==
LOC: M LAB 19:02
PROVIDERS: ATTEND Internal Medicine Endocrinology, Diabetes & Metabolism
DX: E05.90 Thyrotoxicosis, unspecified without thyrotoxic crisis or storm (principal)

== ENCOUNTER → 2023-06-29 | Outpatient (CLI) | payer MEDICARE, BC, OTHER ==
[2023-07-01 23:11] LABS: PSA TOTAL 2.5 ng/mL (0.0-4.0)
== END ==
LOC: M LAB 17:19
PROVIDERS: ATTEND Nurse Practitioner Family
DX: N40.0 Benign prostatic hyperplasia without lower urinary tract symptoms (principal)

== ENCOUNTER → 2023-06-30 | Outpatient (REF) | payer MEDICARE, BC, OTHER | LOC: M LAB 20:40 | PROVIDERS: ATTEND Nurse Practitioner Family | DX: N40.0 Benign prostatic hyperplasia without lower urinary tract symptoms (principal) ==

== ENCOUNTER → 2023-08-02 | Outpatient (CLI) | payer MEDICARE, BC, OTHER ==
[2023-08-02 13:37] LABS: HEMOGLOBIN A1c 7.6 % (4.0-6.0)
[2023-08-02 13:53] LABS: FREE T4 0.8 NG/DL (0.89-1.76); THYROID STIMULATING HORMONE 6.716 uIU/ML (0.55-4.78)
== END ==
LOC: M LAB 12:41
PROVIDERS: ATTEND Internal Medicine Endocrinology, Diabetes & Metabolism
DX: E05.90 Thyrotoxicosis, unspecified without thyrotoxic crisis or storm (principal); E11.9 Type 2 diabetes mellitus without complications

== ENCOUNTER → 2023-10-19 | Outpatient (CLI) | payer MEDICARE, BC, OTHER | LOC: M SLEEP 20:00 | PROVIDERS: ATTEND Nurse Practitioner Adult Health | DX: G47.33 Obstructive sleep apnea (adult) (pediatric) (principal) ==

== ENCOUNTER → 2023-12-21 | Outpatient (CLI) | payer MEDICARE, BC, OTHER ==
[2023-12-21 06:53] LABS: HEMOGLOBIN A1c 7.4 % (4.0-6.0)
[2023-12-21 07:19] LABS: ALKALINE PHOSPHATASE 77 U/L (46-116); ALT/SGPT 31 U/L (7.0-40); AST/SGOT 19 U/L (<34); BILIRUBIN,TOTAL 0.4 MG/DL (0.3-1.2); BLOOD UREA NITROGEN 21 MG/DL (9-23); CARBON DIOXIDE LEVEL 32 MMOL/L (20-31); CHLORIDE LEVEL 101 MMOL/L (98-107); CREATININE FOR GFR 0.88 MG/DL (0.70-1.30); GLOMERULAR FILTRATION RATE > 60.0 (>42); GLUCOSE, FASTING 153 MG/DL (74-106); POTASSIUM SERUM 4.1 MMOL/L (3.5-5.1); SODIUM LEVEL 137 MMOL/L (136-145); TOTAL PROTEIN 6.5 G/DL (5.7-8.2)
[2023-12-21 07:21] LABS: FREE T3 3.4 PG/ML (2.3-4.2); THYROID STIMULATING HORMONE 3.237 uIU/ML (0.55-4.78)
[2023-12-21 07:22] LABS: FREE T4 0.89 NG/DL (0.89-1.76)
== END ==
LOC: M LAB 06:23
PROVIDERS: ATTEND Internal Medicine Endocrinology, Diabetes & Metabolism
DX: E11.9 Type 2 diabetes mellitus without complications (principal); E05.90 Thyrotoxicosis, unspecified without thyrotoxic crisis or storm

== ENCOUNTER 2024-01-02 12:14 | Emergency (ER) | payer MEDICARE, BC, OTHER ==
[~2024-01-02] VITALS: Ht 190.5 cm; Wt 103.2 kg
[2024-01-02 12:51] LABS: AMORPHOUS SEDIMENT SMALL (NEGATIVE); APPEARANCE, URINE CLEAR (CLEAR); BACTERIA, URINE AUTO 1+ (NEGATIVE); BILIRUBIN, URINE AUTO NEGATIVE (NEGATIVE); BLOOD, URINE BLOOD 2+ (NEGATIVE); COLOR, URINE AMBER (YELLOW); GLUCOSE, URINE (UA) AUTO NEGATIVE (NEGATIVE); KETONE, URINE AUTO NEGATIVE (NEGATIVE); LEUKOCYTE ESTERASE, URINE AUTO NEGATIVE (NEGATIVE); NITRITE, URINE AUTO NEGATIVE (NEGATIVE); PROTEIN, URINE AUTO 2+ mg/dL (NEGATIVE); RBC, URINE AUTO 101 /HPF (0-3); SPECIFIC GRAVITY URINE AUTO 1.003 (1.002-1.035); SQUAMOUS EPITHELIAL CELL UR AU 0 /HPF (0-6); UROBILINOGEN, URINE AUTO 0.2 mg/dL (0.0-2.0); WBC, URINE AUTO 2 /HPF (0-3)
[2024-01-02] MEDS ORDERED: JANU100T (13:09)
[2024-01-02] MEDS ORDERED: FLEC150T (13:09)
[2024-01-02] MEDS ORDERED: METO1TAB7 (13:10)
[2024-01-02 14:14] LABS: BASO % 0.4 % (0.0-1.0); EOS # 0.2 10^3/uL (0.0-0.5); EOS % 2.4 % (0.0-3.0); HEMATOCRIT 42.4 % (42.0-52.0); HEMOGLOBIN 14.5 g/dl (13.5-17.5); LYMPH # 2.4 10^3/uL (1.5-5.0); LYMPH % 26.2 % (24.0-44.0); MEAN CORPUSCULAR HEMOGLOBIN 29.3 pg (27.0-33.0); MEAN CORPUSCULAR HGB CONC 34.2 g/dl (32.0-36.5); MEAN CORPUSCULAR VOLUME 85.7 fl (80.0-96.0); MONO # 0.6 10^3/uL (0.0-0.8); MONO % 6.1 % (2.0-8.0); NEUTROPHILS % 64.7 % (36.0-66.0); PLATELET COUNT, AUTOMATED 262 10^3/uL (150-450); RED BLOOD COUNT 4.95 10^6/uL (4.30-6.10); WHITE BLOOD COUNT 9.3 10^3/uL (4.0-10.0)
[2024-01-02 14:33] VITALS: TEMP 98.9
[2024-01-02 14:37] LABS: BLOOD UREA NITROGEN 16 MG/DL (9-23); CALCIUM LEVEL 9.2 MG/DL (8.3-10.6); CARBON DIOXIDE LEVEL 31 MMOL/L (20-31); CHLORIDE LEVEL 103 MMOL/L (98-107); CREATININE FOR GFR 0.85 MG/DL (0.70-1.30); GLOMERULAR FILTRATION RATE > 60.0 (>42); GLUCOSE, FASTING 117 MG/DL (74-106); POTASSIUM SERUM 3.9 MMOL/L (3.5-5.1); SODIUM LEVEL 140 MMOL/L (136-145)
[2024-01-02 14:56] VITALS: BP 130/77; O2SAT 98
== END 2024-01-02 15:00 | disposition home or self-care (01) ==
LOC: M ED 12:14
DX: R31.9 Hematuria, unspecified (principal); E11.9 Type 2 diabetes mellitus without complications; I10 Essential (primary) hypertension; E78.5 Hyperlipidemia, unspecified; Z87.442 Personal history of urinary calculi; Z91.048 Other nonmedicinal substance allergy status; Z79.02 Long term (current) use of antithrombotics/antiplatelets; Z79.4 Long term (current) use of insulin; Z79.811 Long term (current) use of aromatase inhibitors; Z79.899 Other long term (current) drug therapy

== ENCOUNTER → 2024-01-07 | Outpatient (REF) | payer MEDICARE, BC, OTHER ==
[~2024-01-07] MED LIST changes: +FLEC150T; +FLOM0.4C39 PO; +JANU100T; +METO1TAB7
== END ==
LOC: M LAB REF 17:10
PROVIDERS: ATTEND Nurse Practitioner Adult Health
DX: R31.9 Hematuria, unspecified (principal)

== ENCOUNTER 2024-01-09 17:27 | Emergency (ER) | payer MEDICARE, BC, OTHER ==
[~2024-01-09] VITALS: Ht 190.5 cm; Wt 100.1 kg
[~2024-01-09 17:27] MED LIST changes: -FLOM0.4C39 PO
[2024-01-09 18:17] LABS: BASO % 0.4 % (0.0-1.0); EOS # 0.2 10^3/uL (0.0-0.5); EOS % 1.7 % (0.0-3.0); HEMATOCRIT 41.9 % (42.0-52.0); HEMOGLOBIN 14.6 g/dl (13.5-17.5); LYMPH # 2.3 10^3/uL (1.5-5.0); LYMPH % 24.3 % (24.0-44.0); MEAN CORPUSCULAR HEMOGLOBIN 29.7 pg (27.0-33.0); MEAN CORPUSCULAR HGB CONC 34.8 g/dl (32.0-36.5); MEAN CORPUSCULAR VOLUME 85.2 fl (80.0-96.0); MONO # 0.7 10^3/uL (0.0-0.8); MONO % 7.7 % (2.0-8.0); NEUTROPHILS # 6.1 10^3/uL (1.5-8.5); NEUTROPHILS % 65.5 % (36.0-66.0); PLATELET COUNT, AUTOMATED 264 10^3/uL (150-450); RED BLOOD COUNT 4.92 10^6/uL (4.30-6.10); WHITE BLOOD COUNT 9.4 10^3/uL (4.0-10.0)
[2024-01-09] MEDS: methylPREDNISolone 125MG 2ML VIAL IV ONE (19:18)
[2024-01-09] MEDS: diphenhydrAMINE 50MG/ML VIAL IV STA (19:19)
[2024-01-09] MEDS: NS 1,000 ML IV ONE (19:19)
[2024-01-09] MEDS ORDERED: ISOVUE-370 76% 100ML VIAL As Ordered ONE (19:41)
[2024-01-09] MEDS ORDERED: FLOM0.4C39 PO (20:43)
[2024-01-09] MEDS: TAMSULOSIN 0.4 MG CAP PO ONE (20:51)
[2024-01-09 21:21] VITALS: BP 167/79; TEMP 98.1; O2SAT 99
== END 2024-01-09 21:00 | disposition home or self-care (01) ==
LOC: M ED 17:27
DX: N20.1 Calculus of ureter (principal); R31.9 Hematuria, unspecified; E11.9 Type 2 diabetes mellitus without complications; I10 Essential (primary) hypertension; E78.5 Hyperlipidemia, unspecified; Z91.048 Other nonmedicinal substance allergy status; Z79.02 Long term (current) use of antithrombotics/antiplatelets; Z79.4 Long term (current) use of insulin; Z79.899 Other long term (current) drug therapy
CPT/HCPCS: 74177; 80047; 81001; 85025; 87086; 96361; 96374; 96375; 99284; J1200; J2919; Q9967

== ENCOUNTER → 2024-02-23 | Outpatient (CLI) | payer MEDICARE, BC, OTHER ==
[~2024-02-23] MED LIST changes: +FLOM0.4C39 PO
== END ==
LOC: M RAD 09:02
PROVIDERS: ATTEND Physician Assistant Medical
DX: N20.1 Calculus of ureter (principal); N28.1 Cyst of kidney, acquired; K56.41 Fecal impaction

== ENCOUNTER → 2024-03-15 | Outpatient (CLI) | payer MEDICARE, BC, OTHER ==
[2024-03-15 09:00] LABS: HEMOGLOBIN A1c 7.1 % (4.0-6.0)
[2024-03-15 09:15] LABS: THYROID STIMULATING HORMONE 2.801 uIU/ML (0.55-4.78)
[2024-03-15 09:16] LABS: FREE T4 0.86 NG/DL (0.89-1.76)
[2024-03-15 09:17] LABS: FREE T3 2.9 PG/ML (2.3-4.2)
== END ==
LOC: M LAB 08:07
PROVIDERS: ATTEND Internal Medicine Endocrinology, Diabetes & Metabolism
DX: E05.90 Thyrotoxicosis, unspecified without thyrotoxic crisis or storm (principal); E11.65 Type 2 diabetes mellitus with hyperglycemia

== ENCOUNTER → 2024-08-04 | Outpatient (CLI) | payer MEDICARE, BC, OTHER ==
[2024-08-04 15:37] LABS: BASO # 0.1 10^3/uL (0.0-0.2); BASO % 0.6 % (0.0-1.0); EOS # 0.8 10^3/uL (0.0-0.5); EOS % 9.2 % (0.0-3.0); HEMATOCRIT 40.8 % (42.0-52.0); HEMOGLOBIN 14.1 g/dl (13.5-17.5); LYMPH % 35.4 % (24.0-44.0); MEAN CORPUSCULAR HEMOGLOBIN 29.5 pg (27.0-33.0); MEAN CORPUSCULAR HGB CONC 34.6 g/dl (32.0-36.5); MEAN CORPUSCULAR VOLUME 85.4 fl (80.0-96.0); MONO # 0.7 10^3/uL (0.0-0.8); MONO % 8.8 % (2.0-8.0); NEUTROPHILS # 3.8 10^3/uL (1.5-8.5); NEUTROPHILS % 45.8 % (36.0-66.0); PLATELET COUNT, AUTOMATED 263 10^3/uL (150-450); RED BLOOD COUNT 4.78 10^6/uL (4.30-6.10); WHITE BLOOD COUNT 8.3 10^3/uL (4.0-10.0)
[2024-08-04 15:54] LABS: HEMOGLOBIN A1c 7.4 % (4.0-6.0)
[2024-08-04 16:13] LABS: ALBUMIN 4.1 G/DL (3.2-5.2); ALKALINE PHOSPHATASE 69 U/L (40-129); ALT/SGPT 29 U/L (7.0-40); AST/SGOT 15 U/L (<34); BILIRUBIN,TOTAL 0.5 MG/DL (0.3-1.2); BLOOD UREA NITROGEN 18 MG/DL (9-23); CALCIUM LEVEL 9.7 MG/DL (8.3-10.6); CARBON DIOXIDE LEVEL 30 MMOL/L (20-31); CHLORIDE LEVEL 103 MMOL/L (98-107); CHOLESTEROL LEVEL 115 MG/DL (<200); CHOLESTEROL RISK RATIO 4.04 (<5); GLOMERULAR FILTRATION RATE > 60.0 (>42); GLUCOSE, FASTING 89 MG/DL (74-106); HDL CHOLESTEROL 28.4 MG/DL (>40); NON-HDL-C 86.6 MG/DL; POTASSIUM SERUM 3.6 MMOL/L (3.5-5.1); SODIUM LEVEL 141 MMOL/L (136-145); TOTAL PROTEIN 7.3 G/DL (5.7-8.2); TRIGLYCERIDES LEVEL 168 MG/DL (<150)
== END ==
LOC: M LAB 15:14
PROVIDERS: ATTEND Family Medicine
DX: E11.65 Type 2 diabetes mellitus with hyperglycemia (principal)

== ENCOUNTER → 2024-09-22 | Outpatient (CLI) | payer MEDICARE, BC, OTHER | LOC: M LAB 06:57 | PROVIDERS: ATTEND Urology | DX: Z12.5 Encounter for screening for malignant neoplasm of prostate (principal) ==

== ENCOUNTER → 2024-09-22 | Outpatient (CLI) | payer MEDICARE, BC, OTHER ==
[2024-09-22 08:03] LABS: MAU/CREAT RATIO 4.8 MCG/MG (0.0-30.0)
[2024-09-22 08:06] LABS: ALBUMIN 4.1 G/DL (3.2-5.2); ALKALINE PHOSPHATASE 66 U/L (40-129); ALT/SGPT 29 U/L (7.0-40); AST/SGOT 17 U/L (<34); BLOOD UREA NITROGEN 20 MG/DL (9-23); CARBON DIOXIDE LEVEL 31 MMOL/L (20-31); CHLORIDE LEVEL 104 MMOL/L (98-107); CHOLESTEROL LEVEL 114 MG/DL (<200); CHOLESTEROL RISK RATIO 3.67 (<5); CREATININE FOR GFR 0.83 MG/DL (0.70-1.30); GLOMERULAR FILTRATION RATE > 60.0 (>42); GLUCOSE, FASTING 175 MG/DL (74-106); LDL CHOLESTEROL 63.6 MG/DL (<100); POTASSIUM SERUM 4.1 MMOL/L (3.5-5.1); SODIUM LEVEL 141 MMOL/L (136-145); TOTAL PROTEIN 7.1 G/DL (5.7-8.2); TRIGLYCERIDES LEVEL 97 MG/DL (<150)
[2024-09-22 08:07] LABS: THYROID STIMULATING HORMONE 3.712 uIU/ML (0.55-4.78)
[2024-09-22 08:08] LABS: FREE T4 1.01 NG/DL (0.89-1.76)
[2024-09-22 08:28] LABS: HEMOGLOBIN A1c 7.5 % (4.0-6.0)
== END ==
LOC: M LAB 06:56
PROVIDERS: ATTEND Internal Medicine Endocrinology, Diabetes & Metabolism
DX: E11.65 Type 2 diabetes mellitus with hyperglycemia (principal); E05.90 Thyrotoxicosis, unspecified without thyrotoxic crisis or storm; E78.00 Pure hypercholesterolemia, unspecified

== ENCOUNTER → 2024-12-18 | Outpatient (CLI) | payer MEDICARE, BC, OTHER ==
[~2024-12-18] MED LIST changes: -FLOM0.4C39 PO; +TAMS-18 PO
[2024-12-18 09:06] LABS: HEMATOCRIT 44.4 % (42.0-52.0); HEMOGLOBIN 14.5 g/dl (13.5-17.5); MEAN CORPUSCULAR HEMOGLOBIN 28.7 pg (27.0-33.0); MEAN CORPUSCULAR HGB CONC 32.7 g/dl (32.0-36.5); MEAN CORPUSCULAR VOLUME 87.7 fl (80.0-96.0); PLATELET COUNT, AUTOMATED 313 10^3/uL (150-450); RED BLOOD COUNT 5.06 10^6/uL (4.30-6.10); WHITE BLOOD COUNT 8.6 10^3/uL (4.0-10.0)
[2024-12-18 09:34] LABS: ALBUMIN 4.3 G/DL (3.2-5.2); ALKALINE PHOSPHATASE 68 U/L (40-129); ALT/SGPT 25 U/L (7.0-40); AST/SGOT 17 U/L (<34); BILIRUBIN,TOTAL 0.6 MG/DL (0.3-1.2); BLOOD UREA NITROGEN 21 MG/DL (9-23); CALCIUM LEVEL 9.1 MG/DL (8.3-10.6); CARBON DIOXIDE LEVEL 30 MMOL/L (20-31); CHLORIDE LEVEL 101 MMOL/L (98-107); CREATININE FOR GFR 0.91 MG/DL (0.70-1.30); GLOMERULAR FILTRATION RATE > 90.0 (>42); GLUCOSE, FASTING 125 MG/DL (74-106); POTASSIUM SERUM 4.2 MMOL/L (3.5-5.1); SODIUM LEVEL 139 MMOL/L (136-145); TOTAL PROTEIN 7.1 G/DL (5.7-8.2)
[2024-12-18 10:55] LABS: HEMOGLOBIN A1c 6.3 % (4.0-6.0)
== END ==
LOC: M LAB 08:06
PROVIDERS: ATTEND Internal Medicine Endocrinology, Diabetes & Metabolism
DX: E11.65 Type 2 diabetes mellitus with hyperglycemia (principal)

== ENCOUNTER 2025-02-25 07:51 | Emergency (ER) | payer MEDICARE, BC, OTHER ==
[~2025-02-25] VITALS: Ht 190.5 cm; Wt 97.9 kg
[~2025-02-25 07:51] MED LIST changes: -AMIO200T49 PO; +AMIO200T54 PO
[2025-02-25 07:54] VITALS: BP 160/74; TEMP 96.6; O2SAT 98
== END 2025-02-25 08:00 | disposition left against medical advice (07) ==
LOC: M ED 07:51
DX: Z53.21 Procedure and treatment not carried out due to patient leaving prior to being seen by health care provider (principal)

== ENCOUNTER → 2025-06-14 | Outpatient (CLI) | payer MEDICARE, BC, OTHER ==
[2025-06-14 07:47] LABS: ALT/SGPT 24.0 U/L (7.0-40); AST/SGOT 15.0 U/L (<34); CALCIUM LEVEL 9.1 MG/DL (8.3-10.6); CARBON DIOXIDE LEVEL 30.0 MMOL/L (20-31); CHLORIDE LEVEL 100.0 MMOL/L (98-107); CREATININE FOR GFR 0.94 MG/DL (0.70-1.30); GLOMERULAR FILTRATION RATE 86.7 (>42); POTASSIUM SERUM 4.0 MMOL/L (3.5-5.1); SODIUM LEVEL 141.0 MMOL/L (136-145)
[2025-06-14 08:03] LABS: ESTIMATED AVERAGE GLUCOSE 146.0 MG/DL (60-110)
== END ==
LOC: M LAB 06:41
PROVIDERS: ATTEND Internal Medicine Endocrinology, Diabetes & Metabolism
DX: E11.65 Type 2 diabetes mellitus with hyperglycemia (principal); E05.90 Thyrotoxicosis, unspecified without thyrotoxic crisis or storm; E78.00 Pure hypercholesterolemia, unspecified

== ENCOUNTER → 2025-07-04 | Outpatient (CLI) | payer MEDICARE, BC, OTHER | LOC: M LAB 06:35 | PROVIDERS: ATTEND Urology | DX: N28.1 Cyst of kidney, acquired (principal); R97.20 Elevated prostate specific antigen [PSA] ==